=== PATIENT | male | born 1955 | race Hispanic/Latino ===

== ENCOUNTER 2022-12-12 10:06 | Emergency (ER) | payer OTHER, MEDICARE ==
[~2022-12-12] VITALS: Ht 165.1 cm; Wt 68.0 kg
[~2022-12-12 10:06] MED LIST: AMLO5TAB4 PO
[2022-12-12] MEDS ORDERED: SOLU-MEDROL 125MG VIAL IVP ONE (11:30)
[2022-12-12] MEDS ORDERED: IPRATROPIUM/ALBUTEROL SULFATE 3 ML SOLUTION IH ONE (11:30)
[2022-12-12 11:46] LABS: MEAN CORPUSCULAR HEMOGLOBIN 28.3 pg (27.0-33.0); MEAN CORPUSCULAR VOLUME 88.4 fL (79-99); PLATELET COUNT (AUTO) 223 K/uL (130-400); RED BLOOD CELL COUNT(AUTO) 5.09 MIL/uL (4.50-6.20); RED CELL DISTRIBUTION WIDTH 13.6 % (11.0-15.5); WHITE BLOOD COUNT (AUTO) 8.3 K/uL (4.8-10.8)
[2022-12-12 11:47] LABS: BASOPHILS # (AUTO) 0.06 K/uL (0.00-0.20); BASOPHILS % (AUTO) 0.7 % (0.0-5.0); EOSINOPHILS # (AUTO) 0.19 K/uL (0.00-0.70); EOSINOPHILS % (AUTO) 2.3 % (0.0-8.0); IMMATURE GRANULOCYTE ABSOLUTE 0.02 K/uL (0-1); LYMPHOCYTES # (AUTO) 1.6 K/uL (1.0-4.8); LYMPHOCYTES % (AUTO) 19.7 % (21.0-51.0); MONOCYTES # (AUTO) 0.5 K/uL (0.1-1.0); MONOCYTES % (AUTO) 6.5 % (3.0-13.0); NEUTROPHILS # (AUTO) 5.9 K/uL (1.8-7.7); NEUTROPHILS % (AUTO) 70.6 % (40.0-77.0)
[2022-12-12 11:57] VITALS: PULSE 72; RESP 18
[2022-12-12 11:57] LABS: CREATININE 1.4 mg/dL (0.5-1.5); POTASSIUM 4.1 mmol/L (3.5-5.1)
[2022-12-12 12:02] LABS: ALBUMIN 3.8 g/dL (3.5-5.0); BILIRUBIN,TOTAL 0.5 mg/dL (0.2-1.0); TOTAL PROTEIN, SERUM 7.6 g/dL (6.0-8.3)
[2022-12-12 12:24] LABS: B-TYPE NATRIURETIC PEPTIDE 11 pg/mL (0-100)
[2022-12-12] MEDS ORDERED: ALBUTEROL 0.083% 2.5 MG/3 ML INH IH ONE (13:30)
[2022-12-12 13:33] VITALS: PULSE 68; RESP 18
[2022-12-12] MEDS ORDERED: AZIT250T9 PO (13:40)
[2022-12-12] MEDS ORDERED: ALBU18HF7 IH (13:40)
[2022-12-12] MEDS ORDERED: PRED20TA3 PO (13:40)
[2022-12-12 13:45] VITALS: BP 144/77; PULSE 66; RESP 14; O2SAT 99
== END 2022-12-12 13:46 | disposition home or self-care (01) ==
LOC: EDH 10:06
DX: J20.9 Acute bronchitis, unspecified (principal); I10 Essential (primary) hypertension; F32.A Depression, unspecified; Z79.899 Other long term (current) drug therapy; Z98.890 Other specified postprocedural states
CPT/HCPCS: 99285; 96374; 71045; 84484; 80053; 83880; 85025; 87040 ×2; 83605; 36415; 93005; 94640 ×2; J2930

== ENCOUNTER → 2022-12-30 | Outpatient (CLI) | payer OTHER, MEDICARE ==
[~2022-12-30] MED LIST changes: +ALBU18HF7 IH; +AZIT250T9 PO; +IOHEXOL-350 50ML VIAL IV ONE; +PRED20TA3 PO
== END | disposition home or self-care (01) ==
LOC: RAH 13:34
PROVIDERS: ATTEND Family Medicine
DX: S09.90XA Unspecified injury of head, initial encounter (principal); R44.3 Hallucinations, unspecified; G31.9 Degenerative disease of nervous system, unspecified; R90.82 White matter disease, unspecified; X58.XXXA Exposure to other specified factors, initial encounter; Y93.89 Activity, other specified; Y92.89 Other specified places as the place of occurrence of the external cause; Y99.8 Other external cause status
CPT/HCPCS: 70470; Q9967

== ENCOUNTER 2023-08-31 15:38 | Emergency (ER) | payer OTHER ==
[~2023-08-31] VITALS: Ht 154.9 cm; Wt 68.0 kg
[~2023-08-31 15:38] MED LIST changes: +ICOS1CAP2 PO; -IOHEXOL-350 50ML VIAL IV ONE; +IRBE75TA16 PO; +MEMA5TAB16 PO; +OMEP20CA12 PO; -PRED20TA3 PO; +TRAZ-253 PO
[2023-08-31 16:16] LABS: BASOPHILS # (AUTO) 0.07 K/uL (0.00-0.20); BASOPHILS % (AUTO) 0.9 % (0.0-5.0); EOSINOPHILS # (AUTO) 0.55 K/uL (0.00-0.70); EOSINOPHILS % (AUTO) 6.8 % (0.0-8.0); HEMATOCRIT 41.1 % (42-54); IMMATURE GRANULOCYTE ABSOLUTE 0.02 K/uL (0-1); LYMPHOCYTES # (AUTO) 1.5 K/uL (1.0-4.8); MEAN CORPUSCULAR HEMOGLOBIN 28.1 pg (27.0-33.0); MEAN CORPUSCULAR HGB CONC 31.9 g/dL (32.0-36.0); MONOCYTES # (AUTO) 0.6 K/uL (0.1-1.0); MONOCYTES % (AUTO) 7.4 % (3.0-13.0); NEUTROPHILS # (AUTO) 5.3 K/uL (1.8-7.7); NEUTROPHILS % (AUTO) 65.7 % (40.0-77.0); PLATELET COUNT (AUTO) 208 K/uL (130-400); RED BLOOD CELL COUNT(AUTO) 4.67 MIL/uL (4.50-6.20); RED CELL DISTRIBUTION WIDTH 14.1 % (11.0-15.5); WHITE BLOOD COUNT (AUTO) 8.1 K/uL (4.8-10.8)
[2023-08-31 16:26] LABS: CREATININE 1.6 mg/dL (0.5-1.3); POTASSIUM 4.8 mmol/L (3.5-5.1)
[2023-08-31 16:30] LABS: ALBUMIN 3.7 g/dL (3.5-5.0); BILIRUBIN,TOTAL 0.5 mg/dL (0.2-1.0); TOTAL PROTEIN, SERUM 7.1 g/dL (6.0-8.3)
[2023-08-31 16:35] LABS: B-TYPE NATRIURETIC PEPTIDE 37 pg/mL (0-100)
[2023-08-31 16:48] VITALS: PULSE 64; RESP 18
[2023-08-31] MEDS: IPRATROPIUM/ALBUTEROL SULFATE 3 ML SOLUTION IH ONE ×2 (16:48→19:13)
[2023-08-31] MEDS: SOLU-MEDROL 125MG VIAL IVP ONE (16:52)
[2023-08-31] MEDS: MAGNESIUM 2GM PREMIX 50ML 50 ML IV SCH (16:53)
[2023-08-31 17:28] LABS: ABG BASE EXCESS -2.8 mmol/L (-2.0-3.0); ABG HCO3 21.8 mmol/L (21.0-28.0); ABG OXYGEN SATURATION 94.5 % (95.0-99.0); ABG PCO2 37 mmHg (35-48); ABG PH 7.384 (7.35-7.450); PO2, ARTERIAL BG 72.4 mmHg (83.0-108.0); VENT MODE, BG RA (ROOM AIR)
[2023-08-31 19:13] VITALS: PULSE 61; RESP 16
[2023-08-31] MEDS ORDERED: HYDR-4060 PO (19:37)
[2023-08-31] MEDS ORDERED: PRED50TA2 PO (19:37)
[2023-08-31] MEDS ORDERED: LEVO750T68 PO (19:37)
[2023-08-31] MEDS ORDERED: ONDA-243 PO (19:37)
[2023-08-31] MEDS: CEFTRIAXONE 1G VIAL IVPB ONE (19:44)
[2023-08-31 19:58] VITALS: BP 140/62; PULSE 70; RESP 20; O2SAT 99
== END 2023-08-31 19:57 | disposition home or self-care (01) ==
LOC: EDH 15:38
DX: J42 Unspecified chronic bronchitis (principal); R07.89 Other chest pain; I10 Essential (primary) hypertension; E11.9 Type 2 diabetes mellitus without complications; F03.90 Unspecified dementia, unspecified severity, without behavioral disturbance, psychotic disturbance, mood disturbance, and anxiety; Z79.899 Other long term (current) drug therapy; Z98.890 Other specified postprocedural states
CPT/HCPCS: 94640 ×2; 99285; 83735; 84484 ×2; 80053; 82803; 83880; 85025; 36415; 71045; 96374; 96375; 93005; 36600; J3475; J2919; J0696

== ENCOUNTER 2023-12-21 16:43 | Emergency (ER) | payer OTHER, MEDICARE ==
[~2023-12-21] VITALS: Ht 160 cm; Wt 70.3 kg
[~2023-12-21 16:43] MED LIST changes: +ADV250 IH; -AZIT250T9 PO; +DIVA125T32 PO; +FOLI1 PO; -ICOS1CAP2 PO; -IRBE75TA16 PO; +LORA10TA7 PO; +MEMA10TA21 PO; +QUET25TA36 PO; +XALA2.5OS OU
[2023-12-21 17:08] LABS: BASOPHILS # (AUTO) 0.02 K/uL (0.00-0.20); BASOPHILS % (AUTO) 0.2 % (0.0-5.0); EOSINOPHILS # (AUTO) 0.57 K/uL (0.00-0.70); EOSINOPHILS % (AUTO) 6.5 % (0.0-8.0); HEMATOCRIT 40.3 % (42-54); IMMATURE GRANULOCYTE ABSOLUTE 0.04 K/uL (0-1); LYMPHOCYTES # (AUTO) 1.8 K/uL (1.0-4.8); LYMPHOCYTES % (AUTO) 21.1 % (21.0-51.0); MEAN CORPUSCULAR HEMOGLOBIN 28.8 pg (27.0-33.0); MEAN CORPUSCULAR VOLUME 87.2 fL (79-99); MONOCYTES # (AUTO) 0.7 K/uL (0.1-1.0); MONOCYTES % (AUTO) 7.9 % (3.0-13.0); NEUTROPHILS # (AUTO) 5.6 K/uL (1.8-7.7); NEUTROPHILS % (AUTO) 63.8 % (40.0-77.0); PLATELET COUNT (AUTO) 212 K/uL (130-400); RED BLOOD CELL COUNT(AUTO) 4.62 MIL/uL (4.50-6.20); RED CELL DISTRIBUTION WIDTH 13.3 % (11.0-15.5); WHITE BLOOD COUNT (AUTO) 8.7 K/uL (4.8-10.8)
[2023-12-21 17:21] LABS: CREATININE 1.3 mg/dL (0.5-1.3)
[2023-12-21 17:26] LABS: SARS-CoV-2, RNA, NAAT NEGATIVE SARS CoV-2 (NEGATIVE)
[2023-12-21 17:31] LABS: INFLUENZA TYPE A Negative For Type A (NEGATIVE); INFLUENZA TYPE B Negative For Type B (NEGATIVE)
[2023-12-21 17:49] LABS: B-TYPE NATRIURETIC PEPTIDE 17 pg/mL (0-100)
[2023-12-21 18:29] LABS: APPEARANCE,URINE CLEAR (CLEAR); BILIRUBIN,URINE NEGATIVE (NEGATIVE); COLOR,URINE LIGHT-YELLOW (YELLOW); GLUCOSE, URINE (UA) NEGATIVE (NEGATIVE); KETONES,URINE NEGATIVE (NEGATIVE); LEUKOCYTE ESTERASE ,URINE NEGATIVE Leu/uL (NEGATIVE); NITRATE,URINE NEGATIVE (NEGATIVE); OCCULT BLOOD,URINE NEGATIVE (NEGATIVE); PROTEIN,URINE 20 mg/dL (NEGATIVE); UROBILINOGEN,URINE 0.2 mg/dL (0.2-1.0)
[2023-12-21 18:30] LABS: ADD UA MICROSCOPIC YES
[2023-12-21 18:32] LABS: MUCUS,URINE RARE LPF (None Seen); RBC,URINE 0-1 /HPF (0-1); SQUAMOUS EPITHELIAL CELL,UR RARE /HPF (0-2); WBC,URINE 0-1 /HPF (0-1)
[2023-12-21 19:45] VITALS: BP 148/65; PULSE 76; RESP 17; TEMP 98.3; O2SAT 99
== END 2023-12-21 19:52 | disposition home or self-care (01) ==
LOC: EDH 16:43
DX: S50.01XA Contusion of right elbow, initial encounter (principal); J40 Bronchitis, not specified as acute or chronic; F03.90 Unspecified dementia, unspecified severity, without behavioral disturbance, psychotic disturbance, mood disturbance, and anxiety; E11.9 Type 2 diabetes mellitus without complications; I10 Essential (primary) hypertension; Z79.51 Long term (current) use of inhaled steroids; Z79.899 Other long term (current) drug therapy; Z20.822 Contact with and (suspected) exposure to COVID-19; W18.39XA Other fall on same level, initial encounter; Y93.89 Activity, other specified; Y92.89 Other specified places as the place of occurrence of the external cause; Y99.8 Other external cause status
CPT/HCPCS: 36415; 71045; 73060; 73070; 80048; 81001; 82550; 83880; 84484; 85025; 87635; 87804; 93005

== ENCOUNTER 2024-05-17 17:20 | Emergency (ER) | payer OTHER, MEDICARE ==
[~2024-05-17] VITALS: Ht 160 cm; Wt 70.3 kg
[~2024-05-17 17:20] MED LIST changes: -ADV250 IH; +ATOR40TA71 PO; +ICOS1CAP2 PO; -LORA10TA7 PO; -MEMA5TAB16 PO; +MONT-39 PO; -OMEP20CA12 PO; +PRED20TA3 PO; +TAMS-1 PO
--- NOTE | 2024-05-17 17:34 | ERN ---
General Chief Complaint: Shoulder Injury/Pain Stated Complaint: SHOULDER Time Seen by MD: 17:22 History of Present Illness Initial Comments 68-year-old male brought in by EMS from home for a fall. Patient had a mechanical fall, onto the right side. He was right shoulder injury. No head injury. He was pleasantly demented, it was baseline mentation. There is no obvious other trauma. 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 12/12/22 Amlodipine Besylate (Norvasc 5Mg Tab) 5 Mg Tablet, 5 MG PO DAILY, #30 TAB 0 Refills Prov:JOLIE MAGUIRE MANAGER PRODUCT SUPPORT 10/30/21 Reported Medications Icosapent Ethyl (Icosapent Ethyl) 1 Gram Capsule, 2 CAP PO BID for 30 Days, #120 CAP 0 Refills 03/03/24 Montelukast Sodium (Montelukast Sodium) 10 Mg Tablet, 1 TAB PO DAILY for 30 Days, #30 TAB 0 Refills 03/03/24 Atorvastatin Calcium (Atorvastatin Calcium) 40 Mg Tablet, 1 TAB PO DAILY for 30 Days, #30 TAB 0 Refills 03/03/24 Quetiapine Fumarate (Quetiapine Fumarate) 25 Mg Tablet, 25 MG PO BID, TAB 03/03/24 Memantine HCl (Memantine HCl) 10 Mg Tablet, 1 TAB PO BID for 30 Days, #60 TAB 0 Refills 03/03/24 Latanoprost (Xalatan 0.005% Ophth Soln) 0.005 % Opsol, 1 DROP OU HS, DROP 10/03/23 Divalproex Sodium (Divalproex Sodium) 125 Mg Tablet.dr, 125 MG PO BID, TAB 10/03/23 Folic Acid (Folvite) 1 Mg Tab, 1 MG PO DAILY, TAB 10/03/23 Trazodone HCl (Desyrel) 50 Mg Tab, 0.5 TAB PO HS PRN for INSOMNIA 01/21/23 Past Medical History Past Medical History: Arthritis, Dementia, High Cholesterol, Hypertension Past Surgical History: Other Surgical History Other: RT SX Family History Family History: Negative Social History Social History: Negative, Lives with family, Other ROS Dictation Unreliable historian. He complains of right shoulder pain with palpation. He has been in his normal state of health according to the family. Physical Exam Physical Exam Dictation VITAL SIGNS: Reviewed. GENERAL APPEARANCE: Alert, baseline mentation, pleasantly demented HEAD AND FACE: Non-traumatic. EYES: PERRL, pink conjunctivas, eyelid no trauma, anterior chamber clear. EARS: Pinnas intact and no signs of trauma or erythema. Ear canals clear and no discharge. TMs no erythema. NOSE: No discharge, no bleeding. OROPHARYNX: Mouth normal, teeth no caries, tongue pink. Pharynx clear, no erythema. Tonsils no exudates, no abscesses noted. Mucous membrane moist. NECK: Supple, non-tender, no thyromegaly, no masses, no JVD, no bruits. BREAST: Deferred. CHEST: No tenderness, no crepitus, no paradoxical movement, no retractions. LUNGS: Clear, well-ventilated, symmetric, no rales, no wheezing, no rhonchi, no stridor, good breath sounds bilaterally. HEART: Regular rate, regular rhythm, no murmur, no gallops. VASCULAR: No peripheral edema. ABDOMEN: Soft, positive bowel sounds, nondistended, no guarding, nontender, no rebound, no masses no hepatomegaly, no splenomegaly, no Russo's sign, no hernias. RECTAL: Deferred. GENITAL: Deferred. NEUROLOGICAL: Normal speech, gross motor function intact, gross sensory function intact. MUSCULOSKELETAL: Neck nontender, full range of motion, back nontender, full range of motion. Right shoulder deformity/pain. Decreased range of motion due to pain. EXTREMITIES: Nontender, full range of motion. SKIN: Color pink, dry, no turgor, no rash, no lacerations, no abrasions, no c ontusions. LYMPHATICS: Deferred. Results Laboratory and Microbiology Lab and Micro Result REASON: fall ORDERING PHYSICIAN: LOUISE CARD DO PROCEDURE: C SPIN WO - CT CERVICAL SPINE W/O CONTRAST CT CERVICAL SPINE WITHOUT CONTRAST INDICATION: Neck pain after fall TECHNIQUE: Contiguous axial computed tomography imaging using 2 mm slice thickness through the cervical spine. Reconstructions in the sagittal and coronal planes. CT was performed with one or more of the following dose reduction techniques: Automated exposure control, adjustment of the mA and/or kV according to patient size, or use of iterative reconstruction technique. COMPARISON: 10/03/2023. FINDINGS: Straightening of the normal lordosis may be related to overlying muscle spasm, underlying degenerative joint disease and/or patient positioning.. Vertebral bodies are normal stature without evidence for compression deformity or fracture. No evidence for subluxation. Multilevel mild to moderate cervical spondylosis. The craniocervical junction appears normal. The atlantoaxial articulation is within normal limits. The dens is intact. The pre- and paravertebral soft tissues appear unremarkable. IMPRESSION: No evidence for fracture or subluxation. REASON: fall ORDERING PHYSICIAN: LOUISE CARD DO PROCEDURE: HEAD WO - CT HEAD/BRAIN W/O CONTRAST CT HEAD WITHOUT CONTRAST INDICATION: Fall TECHNIQUE: Noncontrast axial helical CT images from the vertex through the skull base using 5 mm slice thickness without contrast material. Coronal and sagittal reconstructions were also included. Dose reduction techniques was used using integrated, automated and adaptive dose reduction exposure control. CT was performed with one or more of the following dose reduction techniques: Automated exposure control, adjustment of the mA and/or kV according to patient size, or use of iterative reconstruction technique. COMPARISON: 11/20/2023 FINDINGS: Scattered and coalescent subcortical and periventricular white matter low attenuating areas likely represent residual of chronic small vessel arteriopathy and/or remote vascular insult. Generalized mild cerebral cortical atrophy is present.. No evidence for abnormal extra-axial fluid collections or masses. The ventricles and sulci are normal in size and configuration. No evidence for intracranial parenchymal, epidural, or subdural hemorrhage, mass effect or midline shift. The wolf-white matter differentiation is well preserved. No secondary evidence to suggest acute ischemia. Mild calcific plaque is present along the bonilla of the cavernous segments of both internal carotid arteries. The brainstem and cerebellum appear normal. The visualized orbits appear unremarkable. The visible paranasal sinuses and mastoid air cells are clear. The calvarium appears normal. IMPRESSION: Chronic white matter ischemic changes, mild brain atrophy, and arteriosclerotic disease as described, without acute component. CORDELIA: pain ORDERING PHYSICIAN: LOUISE CARD DO PROCEDURE: SHOL 2V RT - SHOULDER COMP 2+VWS RT RIGHT SHOULDER RADIOGRAPHS - 2-3 VIEWS INDICATION: Pain COMPARISON: None FINDINGS/IMPRESSION: Mild acromioclavicular joint osteoarthropathy. Anterior right shoulder dislocation without fracture. Labs Reviewed?: Yes MDM The patient is a 68-year-old male with a history of dementia who presents to the emergency after a fall while trying to get into his truck. Patient complaints of right shoulder pain. Denies any head trauma, LOC, nausea or vomiting. No other complaints reported. Reduction of right shoulder successfully performed by Dr. Card. Patient tolerated procedure well. Patient now back at baseline. Neurovascularly intact. Ambulatory with the assistance. Patient in no acute distress will be discharged to follow up with ortho. Discharge instructions given to patient is family member. Differential diagnosis: Shoulder dislocation, shoulder contusion, clavicle fracture Need for hospitalization: Patient does not meet criteria for hospitalization. There are no social concerns with this patient. ED Course Orders Procedure Category Date Status Time Shoulder Comp 2+Vws Rt RAD 05/17/24 Resulted 17:30 Ct Head/Brain W/O CT 05/17/24 Resulted Contrast 17:30 Ct Cervical Spine W/O CT 05/17/24 Resulted Contrast 17:30 Midazolam Hcl (Versed) PHA 05/17/24 Complete 18:30 Fentanyl Citrate Pf PHA 05/17/24 Complete 0.05 Mg/Ml (Fentanyl 18:30 Fentanyl Citrate Pf PHA 05/17/24 Complete 0.05 Mg/Ml (Fentanyl 18:11 Midazolam Hcl (Versed) PHA 05/17/24 Complete 18:11 Shoulder Ltd 1vw Rt RAD 05/17/24 Resulted 18:15 Current Medications Medications (Trade) Dose Ordered Sig/Amarilis Route PRN Reason Start Time Stop Time Status Last Admin Dose Admin Fentanyl Citrate (FENTanyl CITRate PF 50 MCG/ 1 ML 2ML VIAL) 50 mcg ONCE ONCE IVP 05/17/24 18:30 05/17/24 18:32 DC 05/17/24 18:15 Fentanyl Citrate (FENTanyl CITRate PF 50 MCG/ 1 ML 2ML VIAL) 100 mcg STK-MED ONCE .ROUTE 05/17/24 18:11 05/17/24 18:12 DC Midazolam HCl (Versed) 2 mg ONCE ONCE IVP 05/17/24 18:30 05/17/24 18:32 DC 05/17/24 18:15 Midazolam HCl (Versed) 2 mg STK-MED ONCE .ROUTE 05/17/24 18:11 05/17/24 18:12 DC Vital Signs Date Time Temp Pulse Resp B/P (MAP) Pulse Ox O2 Delivery O2 Flow Rate FiO2 05/17/24 20:06 98.1 80 16 148/74 97 Room Air* 0 21 05/17/24 18:27 82 14 156/70 95 Room Air* 0 21 05/17/24 18:15 75 14 179/64 95 Room Air* 0 21 05/17/24 17:24 81 16 149/71 96 Room Air 0 Joint Reduction Joint Reduction : Joint Reduction Site: shoulder (R) Conscious Sedation: Yes Reduction Attempts: 1 Pre-Procedure NV Exam: Yes Post-Procedure NV Exam: Yes post joint reduction film: joint reduced Progress Right shoulder anterior dislocation Closed reduction Performed by Dr. Card Consent: Verbal by patient Patient given fentanyl and Versed Shoulder reduced with traction counter traction, no complication Neurovascularly intact after I reviewed the repeat shoulder x-ray, good reduction Patient was full range of motion Patient monitored until back to baseline mentation. No complication. DX & DISP Disposition: Discharge Departure Impression: Primary Impression: Ground-level fall Additional Impression: Dislocation of right shoulder joint Condition: Stable Additional Instructions: Please continue to monitor at home. Do not allow patient to walk without assistance. Keep sling on. Follow up with pcp and ortho. If symptoms worsen please return to ER FOLLOW-UP WITH PRIMARY CARE PROVIDER IN 1 TO 2 DAYS. TAKE MEDICATIONS DIRECTED HERE IN THE EMERGENCY ROOM. OKAY TO CONTINUE HOME MEDICATIONS UNLESS OTHERWISE DISCUSSED DURING YOUR VISIT IN THE EMERGENCY ROOM TODAY. RETURN TO YOUR NEAREST EMERGENCY ROOM IF SYMPTOMS WORSEN OR IF THERE IS NO IMPROVEMENT. CALL 911 IF YOU NEED IMMEDIATE ASSISTANCE. TAKE TYLENOL [id number] NEEDED AND IF NO CONTRAINDICATIONS ARE PRESENT. INCREASE ORAL HYDRATION. A WOUND CULTURE OR URINE CULTURE WAS ORDERED HERE IN THE EMERGENCY ROOM DEPARTMENT PLEASE FOLLOW-UP WITH PRIMARY CARE PROVIDER AND ADVISE THEM TO GET REPEAT PORTS FROM OUR FACILITY. IF YOU HAD ANY MERYL WRAP/SPLINTS THAT WERE APPLIED HERE, PLEASE DO NOT REMOVE THEM UNTIL YOU SEE YOUR PRIMARY CARE OR SPECIALTY. Referrals: MARGO FRIEDMAN M.D. (PCP) KRISTEN HUSAIN MD Time of Disposition: 20:07 I have examined patient, & reviewed all documents, & agreed W/ the Diagnosis, and Plan I performed a substantive portion of the visit. I have reviewed and personally made and approve the management plan that is documented in the notes by myself with FRANCISCO/resident. I acknowledged full responsibility for the patient's management plan. 5-year-old male with a mechanical fall. Right shoulder dislocation. CT scans are unremarkable. Shoulder reduced without complication. DC'd in a sling to orthopedic follow up LOUISE CARD DO May 17, 2024 17:34 DANIS FERRARI May 17, 2024 19:21
[2024-05-17] MEDS: FENTanyl CITRate PF 50 MCG/1 ML 2ML VIAL IVP ONE (18:15)
[2024-05-17] MEDS: MIDAZOLAM HCL 1 MG/ML 2ML VIAL IVP ONE (18:15)
[2024-05-17] MEDS: FENTanyl CITRate PF 50 MCG/1 ML 2ML VIAL ONE (18:37)
[2024-05-17] MEDS: MIDAZOLAM HCL 1 MG/ML 2ML VIAL ONE (18:37)
--- NOTE | 2024-05-17 19:02 | HMCIMG ---
CT HEAD WITHOUT CONTRAST INDICATION: Fall TECHNIQUE: Noncontrast axial helical CT images from the vertex through the skull base using 5 mm slice thickness without contrast material. Coronal and sagittal reconstructions were also included. Dose reduction techniques was used using integrated, automated and adaptive dose reduction exposure control. CT was performed with one or more of the following dose reduction techniques: Automated exposure control, adjustment of the mA and/or kV according to patient size, or use of iterative reconstruction technique. COMPARISON: 11/20/2023 FINDINGS: Scattered and coalescent subcortical and periventricular white matter low attenuating areas likely represent residual of chronic small vessel arteriopathy and/or remote vascular insult. Generalized mild cerebral cortical atrophy is present.. No evidence for abnormal extra-axial fluid collections or masses. The ventricles and sulci are normal in size and configuration. No evidence for intracranial parenchymal, epidural, or subdural hemorrhage, mass effect or midline shift. The wolf-white matter differentiation is well preserved. No secondary evidence to suggest acute ischemia. Mild calcific plaque is present along the bonilla of the cavernous segments of both internal carotid arteries. The brainstem and cerebellum appear normal. The visualized orbits appear unremarkable. The visible paranasal sinuses and mastoid air cells are clear. The calvarium appears normal. IMPRESSION: Chronic white matter ischemic changes, mild brain atrophy, and arteriosclerotic disease as described, without acute component.
--- NOTE | 2024-05-17 19:02 | HMCIMG ---
CT CERVICAL SPINE WITHOUT CONTRAST INDICATION: Neck pain after fall TECHNIQUE: Contiguous axial computed tomography imaging using 2 mm slice thickness through the cervical spine. Reconstructions in the sagittal and coronal planes. CT was performed with one or more of the following dose reduction techniques: Automated exposure control, adjustment of the mA and/or kV according to patient size, or use of iterative reconstruction technique. COMPARISON: 10/03/2023. FINDINGS: Straightening of the normal lordosis may be related to overlying muscle spasm, underlying degenerative joint disease and/or patient positioning.. Vertebral bodies are normal stature without evidence for compression deformity or fracture. No evidence for subluxation. Multilevel mild to moderate cervical spondylosis. The craniocervical junction appears normal. The atlantoaxial articulation is within normal limits. The dens is intact. The pre- and paravertebral soft tissues appear unremarkable. IMPRESSION: No evidence for fracture or subluxation.
--- NOTE | 2024-05-17 19:06 | HMCIMG ---
RIGHT SHOULDER RADIOGRAPHS - 2-3 VIEWS INDICATION: Pain COMPARISON: None FINDINGS/IMPRESSION: Mild acromioclavicular joint osteoarthropathy. Anterior right shoulder dislocation without fracture.
--- NOTE | 2024-05-17 19:48 | HMCIMG ---
Exam Type: SHOULDER LTD 1VW RT Clinical Information: POST REDUCTION Comparison: None FINDINGS: There is adequate alignment of the glenohumeral joint after successful dislocation reduction. No other interval changes are seen. IMPRESSION: Adequate post reduction alignment.
[2024-05-17 20:06] VITALS: BP 148/74; PULSE 80; RESP 16; TEMP 98.1; O2SAT 97
== END 2024-05-17 20:20 | disposition home or self-care (01) ==
LOC: EDH 17:20
DX: S43.014A Anterior dislocation of right humerus, initial encounter (principal); W18.39XA Other fall on same level, initial encounter; Y93.89 Activity, other specified; Y92.89 Other specified places as the place of occurrence of the external cause; Y99.8 Other external cause status; E78.00 Pure hypercholesterolemia, unspecified; F03.90 Unspecified dementia, unspecified severity, without behavioral disturbance, psychotic disturbance, mood disturbance, and anxiety; I10 Essential (primary) hypertension; Z79.52 Long term (current) use of systemic steroids; Z79.899 Other long term (current) drug therapy
CPT/HCPCS: 99284; 23650; 70450; 73030; 72125; 73020; J3010; J2250

== ENCOUNTER 2024-06-07 13:19 | Observation (INO) | payer OTHER, MEDICARE ==
[~2024-06-07] VITALS: Ht 167.6 cm; Wt 68.5 kg
[~2024-06-07 13:19] MED LIST changes: -TAMS-1 PO; +TAMS-55 PO
[2024-06-07] MEDS: DIPH,PERTUSS(ACELL),TET VAC/PF 0.5 ML VIAL IM ONE (14:42)
--- NOTE | 2024-06-07 14:55 | HMCIMG ---
CT HEAD/BRAIN W/O CONTRAST HISTORY: Status post fall COMPARISON: None TECHNIQUE: Multiple sequential axial images of the head were obtained from the base of the skull through vertex. Patient was not given contrast through intravenous route. FINDINGS: The ventricles and extraventricular CSF spaces are dilated consistent with cerebral atrophy. Nonspecific white matter changes seen. There is no midline shift, mass effect or herniation. No acute intracranial bleed is seen. Visualized portion of the paranasal sinuses are grossly within normal limits. IMPRESSION: 1. No acute intracranial bleed is seen. 2. Atrophy with white matter changes. CT was performed with one or more following dose reduction techniques: automated exposure control, adjustment of the mA and kv according to patient's size, or use of a iterative reconstruction technique.
--- NOTE | 2024-06-07 15:00 | HMCIMG ---
CT CERVICAL SPINE W/O CONTRAST HISTORY: Status post fall COMPARISON: None TECHNIQUE: Multiple sequential axial images of the cervical spine were obtained including post processing sagittal and coronal reconstruction images. Patient was not given contrast through intravenous route. FINDINGS: There are degenerative changes with cervical spine spondylosis. Disc space narrowings are seen at C5-6 and C6-7 levels. There appears be punched-out lesions noted within the cervical spine. Possibility of multiple myeloma cannot be completely excluded. There is straightening of normal lordotic cervical curvature which may be related to muscle spasm or positioning. There is no loss of vertebral height. Evaluation for disc and cord pathology is limited with CT study. No evidence of fracture or dislocation is seen. IMPRESSION: 1. No fracture is seen. DJD with cervical spine spondylosis. Heterogeneous attenuation with possible punched-out lesions within the cervical spine with possibility of multiple myeloma not excluded. CT was performed with one or more following dose reduction techniques: automated exposure control, adjustment of the mA and kv according to patient's size, or use of a iterative reconstruction technique.
[2024-06-07 15:21] LABS: BASOPHILS # (AUTO) 0.05 K/uL (0.00-0.20); BASOPHILS % (AUTO) 0.5 % (0.0-5.0); EOSINOPHILS # (AUTO) 0.06 K/uL (0.00-0.70); EOSINOPHILS % (AUTO) 0.6 % (0.0-8.0); HEMATOCRIT 42.6 % (42-54); IMMATURE GRANULOCYTE ABSOLUTE 0.03 K/uL (0-1); LYMPHOCYTES # (AUTO) 1.4 K/uL (1.0-4.8); LYMPHOCYTES % (AUTO) 14.3 % (21.0-51.0); MEAN CORPUSCULAR HEMOGLOBIN 28.6 pg (27.0-33.0); MEAN CORPUSCULAR HGB CONC 32.4 g/dL (32.0-36.0); MEAN CORPUSCULAR VOLUME 88.4 fL (79-99); MONOCYTES # (AUTO) 0.7 K/uL (0.1-1.0); MONOCYTES % (AUTO) 6.9 % (3.0-13.0); NEUTROPHILS # (AUTO) 7.3 K/uL (1.8-7.7); NEUTROPHILS % (AUTO) 77.4 % (40.0-77.0); PLATELET COUNT (AUTO) 235 K/uL (130-400); RED BLOOD CELL COUNT(AUTO) 4.82 MIL/uL (4.50-6.20); RED CELL DISTRIBUTION WIDTH 13.4 % (11.0-15.5); WHITE BLOOD COUNT (AUTO) 9.4 K/uL (4.8-10.8)
--- NOTE | 2024-06-07 15:24 | HMCIMG ---
CT CHEST/ABD/PELV W/O CONTRAST HISTORY: Status post fall COMPARISON: None TECHNIQUE: Multiple sequential axial images of the chest were obtained from the thoracic inlet through upper abdomen. Patient was not given contrast through intravenous route. FINDINGS: Prominent interstitial markings are seen. There is no evidence of pulmonary nodule or parenchymal disease. No pleural effusion or pericardial effusion is seen. There is no evidence of pneumothorax. There are normal size mediastinal and hilar lymph nodes. The heart is borderline enlarged. Coronary arterial calcifications are seen. Degenerative changes of the thoracolumbar spine are present. There is no evidence of adrenal nodule. IMPRESSION: 1. No evidence of pulmonary nodule or effusion is seen. CT CHEST/ABD/PELV W/O CONTRAST HISTORY: Status post fall COMPARISON: None TECHNIQUE: Multiple sequential axial images of the abdomen and pelvis were obtained from the dome of the diaphragm through symphysis pubis. Patient was not given contrast through intravenous route. Oral contrast was not given. FINDINGS: The liver, spleen, adrenal glands and pancreas are unremarkable. There is no evidence of hydronephrosis bilaterally. No evidence of renal stone is seen. Fecal material is seen in the colon. There are normal size retroperitoneal and mesenteric lymph nodes. No ascites is seen. Atherosclerotic changes are present. There is infrarenal abdominal aortic aneurysm measuring 2.6 x 2.4 cm. There is diverticulosis. Pelvic sidewalls are symmetric bilaterally. Bladder is well distended without wall thickening. IMPRESSION: 1. No acute findings. CT was performed with one or more following dose reduction techniques: automated exposure control, adjustment of the mA and kv according to patient's size, or use of a iterative reconstruction technique.
[2024-06-07 15:27] LABS: CREATININE 1.4 mg/dL (0.5-1.3)
--- NOTE | 2024-06-07 15:28 | HMCIMG ---
CT MAXILLOFACIAL W/O CONTRAST HISTORY: Status post fall COMPARISON: None TECHNIQUE: Multiple sequential high-resolution axial images of the paranasal sinuses were obtained. Postprocessing sagittal and coronal reconstruction images were also obtained. Patient was not given contrast through intravenous route. FINDINGS: Nasal septum is deviated towards right. Patient is almost edentulous. There is nasal polyposis. There is no evidence of mucoperiosteal thickening involving the paranasal sinuses. The infundibula are patent bilaterally. There is deformity of the nasal bones and nasal spine may be related to fracture of indeterminate age. Soft tissue swelling is seen. Deformity is seen of the right orbit may be related to blindness and ophthalmologic correlation is recommended. There is no evidence of air-fluid level in the paranasal sinuses. Parapharyngeal fat planes are preserved bilaterally. IMPRESSION: 1. There is deformity of the nasal bones and nasal spine may be related to fracture of indeterminate age. Soft tissue swelling is seen. Deformity is seen of the right orbit may be related to blindness and ophthalmologic correlation is recommended. CT was performed with one or more following dose reduction techniques: automated exposure control, adjustment of the mA and kv according to patient's size, or use of a iterative reconstruction technique.
[2024-06-07 15:30] LABS: INR 0.99 (0.85-1.15); PROTHROMBIN TIME 10.5 SEC (9.6-11.6)
[2024-06-07 15:32] LABS: PARTIAL THROMBOPLASTIN TIME 24.5 SEC (26.3-35.5)
--- NOTE | 2024-06-07 15:53 | HMCIMG ---
HAND 3+VWS RT HISTORY: Pain COMPARISON: None TECHNIQUE: 3 images of right hand were obtained. FINDINGS: Interphalangeal joint space narrowing is seen. Radiocarpal joint space narrowing is seen. There is no acute displaced fracture or dislocation. Degenerative changes are seen. IMPRESSION: 1. Findings as described above.
--- NOTE | 2024-06-07 15:55 | HMCIMG ---
SHOULDER COMP 2+VWS RT HISTORY: Pain COMPARISON: None TECHNIQUE: 3 images of right shoulder were obtained. FINDINGS: There is no acute displaced fracture or dislocation. Degenerative changes are seen. IMPRESSION: 1. Findings as described above.
--- NOTE | 2024-06-07 15:56 | HMCIMG ---
HAND 3+VWS LT HISTORY: Pain COMPARISON: None TECHNIQUE: 3 images of left hand were obtained. FINDINGS: Radiocarpal joint space narrowing and interphalangeal joint space narrowing are seen. There appears to be loose body near the third proximal interphalangeal joint. There is no acute displaced fracture or dislocation. Degenerative changes are seen. IMPRESSION: 1. Findings as described above.
[2024-06-07] MEDS: LIDOCAINE HCL 1% 20 ML VIAL INJ ONE (16:13)
[2024-06-07] MEDS: CLINDAMYCIN IVPB 300MG/50ML 50 ML IV STA (16:13)
--- NOTE | 2024-06-07 16:28 | EKG ---
[facility] Test Date: 2024-06-07 Test Time: 16:26:57 Pat Name: WALT VEGA Department: ED Room: 319 Gender: M Frankfurter Inspector: [id number] : 1955 Requested By: DANIS FERRARI Order Number: [id number] Reading MD: Stu Dover Measurements Intervals [place] Rate: 87 P: 23 CA: 181 QRS: -27 QRSD: 92 T: 52 QT: 370 QTc: 447 Interpretive Statements Sinus rhythm Compared to ECG 03/02/2024 17:48:48 Myocardial infarct finding no longer present Electronically Signed On 06-16-2024 13:54:04 CDT by Stu Dover Please click the below link to view image of tracing.
[2024-06-07] MEDS ORDERED: ondanSETRON 4MG INJ IVP PRN (17:30)
[2024-06-07] MEDS ORDERED: acetaMINOPHEN 325 MG TAB PO PRN (17:30)
[2024-06-07] MEDS ORDERED: LAbetaLOL 20MG SYG IV PRN (17:30)
[2024-06-07] MEDS ORDERED: LACTULOSE 20 GM/30 ML UDCUP PO PRN (17:30)
[2024-06-07] MEDS ORDERED: hydrALAZine 20MG/ML VIAL IV PRN (17:30)
[2024-06-07] MEDS: NEOMY SULF/BACITRA/POLYMYXIN B 1 EACH PACKET TP ONE (18:02)
--- NOTE | 2024-06-07 18:21 | HP ---
[facility] HISTORY & PHYSICAL Date Patient Seen: Jun 07, 2024 Time of Visit: 1999 Supervising Physician: [Dr. Miquel Doe ] Primary Care Physician: [Dr. Rufnia Hanna ] Outpatient Specialists: [ ] Inpatient Consults: [ ] PROBLEM LIST: Ground-level fall sustaining skin laceration on forehead, arms and nasal bridge-POA Recurrent falls-POA Acute encephalopathy, likely multifactorial from dementia vs. metabolic vs. rule-out infectious pending UA-POA Rule-out multiple myeloma-POA Infrarenal abdominal aortic aneurysm measuring 2.6 x 2.4 cm.-POA KRISTIE on CKD 4-POA Dehydration-POA Facial wound and laceration concern for development of non-purulent cellulitis s/p stitches-POA Behavioral agitation and sundowning-POA Primary HTN HLD Dementia Hallucination, visual and auditory HX of prior right-sided CVA Right eye blindness PLAN: -Admit to medsurg -IV fluid for hydration -Pending UA -Multiple myeloma blood work-up, if significant, consider consult with oncology -Obtain MRI of the spine in am -Manage electrolytes, replete PRN -Start on IV Ancef for prophylactic coverage of skin infection related to fall, also apply triple antibiotic ointment TID -Avoid mind-altering meds and sedatives -1:1 sitter for safety -PT/OT to eval and treat -Obtain B2M and CEA -Watchful surveillance on the incidental findings of infrarenal aortic aneurysm HPI: [Patient has dementia and unable to engage with a meaningful HPI. 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 Per ED HAND CULTIVATOR notes: "The patient is a 68-year-old male with a history of dementia, hypertension, arthritis, right eye blindness who presents to the emergency department with a ground level fall onset 12:30 p.m. after tripping while walking. Per patient's fall was witnessed by neighbors. Reports patient f ell and hit his face. Denies any LOC, nausea or vomiting. Denies any blood thinners. Patient complaints of right shoulder and bilateral hand pain, face pain. Unknown last Tdap" [place]. claims that the patient would have recurrent falls, he is blind on his right eye. CT imaging and xrays were negative for fractures and dislocations on maxillofacial, arms, hands, shoulder and spine. However, concerns for possible multiple myeloma was raised due to punched-out lesions found on the CT cervical spine. He was given prophylactic Clindamycin and TDAP injection in ED. Physical assessment reveals skin laceration on the nasal bridge which was sutured in ED and wounds on forehead and bilateral arms. Negative for swelling and tenderness on cervical, thoracic and lumbar area. ] PAST MEDICAL HX: see above PAST SURGICAL HX: noncontributory SOCIAL HISTORY: No tobacco, ETOH, or illicit drug use Coded Allergies: No Known Drug Allergies (Unverified Allergy, Unknown, 05/02/21) REVIEW OF SYSTEMS: Unable to perform 12 point ROS due to patient's dementia. PHYSICAL EXAM: GENERAL: alert, weak, awake oriented to self and HEENT: EOMI, Sclera non icteric, dry mucosa, right eye blind NECK: Supple, no JVD, trachea midline LUNGS: Clear breath sounds bilaterally. No wheezes HEART: Regular rate and rhythm. Normal S1 and S2, without murmurs ABD: Abdomen soft, nontender. Bowel sounds present EXT: No clubbing cyanosis or edema SKIN: forehead wound, nasal bridge laceration with stitches, BUE wounds sustained from mechanical fall NEURO: Alert and oriented to person, follows commands Vital Signs (last 8hr) Date Time Temp Pulse Resp B/P (MAP) Pulse Ox O2 Delivery O2 Flow Rate FiO2 06/07/24 18:12 98.4 92 24 155/62 100 Room Air* 0 21 06/07/24 14:05 98.8 107 18 138/67 99 Room Air* 0 21 06/07/24 13:40 98.2 107 16 138/62 94 Room Air 0 LABS: Hematology Labs: Test 06/07/24 15:13 Range/Units White Blood Count 9.4 4.8-10.8 K/uL Red Blood Count 4.82 4.50-6.20 MIL/uL Hemoglobin 13.8 L 14.0-18.0 g/dL Hematocrit 42.6 42-54 % Mean Corpuscular Volume 88.4 79-99 fL Mean Corpuscular Hemoglobin 28.6 27.0-33.0 pg Mean Corpuscular Hemoglobin Concent 32.4 32.0-36.0 g/dL Red Cell Distribution Width 13.4 11.0-15.5 % Platelet Count 235 130-400 K/uL Mean Platelet Volume 9.9 7.5-10.5 fL Immature Granulocyte % (Auto) 0.3 0-1 % Neutrophils (%) (Auto) 77.4 H 40.0-77.0 % Lymphocytes (%) (Auto) 14.3 L 21.0-51.0 % Monocytes (%) (Auto) 6.9 3.0-13.0 % Eosinophils (%) (Auto) 0.6 0.0-8.0 % Basophils (%) (Auto) 0.5 0.0-5.0 % Neutrophils # (Auto) 7.3 1.8-7.7 K/uL Lymphocytes # (Auto) 1.4 1.0-4.8 K/uL Monocytes # (Auto) 0.7 0.1-1.0 K/uL Eosinophils # (Auto) 0.06 0.00-0.70 K/uL Basophils # (Auto) 0.05 0.00-0.20 K/uL Absolute Immature Granulocyte (auto 0.03 0-1 K/uL Nucleated Red Blood Cells 0.0 0.0-0.19 % Chemistry Labs: Test 06/07/24 15:13 Range/Units Sodium Level 139 136-145 mmol/L Potassium Level 4.0 3.5-5.1 mmol/L Chloride Level 104 101-111 mmol/L Carbon Dioxide Level 26 21-32 mmol/L Blood Urea Nitrogen 24 H 7-18 mg/dL Creatinine 1.4 H 0.5-1.3 mg/dL Glomerular Filtration Rate Calc 54 >90 mL/min Random Glucose 188 H 70-105 mg/dL Total Calcium 9.2 8.5-10.1 mg/dL Coagulation Labs: Test 06/07/24 15:13 Range/Units Prothrombin Time 10.5 9.6-11.6 SEC Prothromb Time International Ratio 0.99 0.85-1.15 Activated Partial Thromboplast Time 24.5 L 26.3-35.5 SEC DIAGNOSTICS / RADIOLOGY RESULTS: [ ] PLAN NEURO: Minimize central acting medications as possible. Maintain fall precautions, adequate lighting during the day PULMONARY: Supplemental 02 as needed. Maintain aspiration precautions at all times CARDIOVASCULAR: Follow hemodynamics. Vital signs per facility protocol GI & NUTRITION: Continue with nutritional support. Continue stool softeners and laxatives as needed. KIDNEYS & ELECTROLYTES: Strict monitoring of intake, output and overall fluid balance. Avoid nephrotoxic medications to the extent possible. Medications to be dosed according to renal function. Monitor electrolytes and replace as needed ENDOCRINE: Maintain blood glucose between 100-180 at all times. Hypoglycemia protocol in place INFECTIOUS DISEASE: Trend temperature, WBC and procalcitonin level Follow cultures, deescalate antibiotics as soon as possible. Panculture if new onset fever ONCOLOGY/HEMATOLOGY/COAGULATION: Monitor for s/s of bleeding Monitor hemoglobin, coagulation studies as needed SKIN: Pressure ulcer prevention per facility protocol Specialty mattress ORTHO/REHAB: Continue PT/OT Prophylaxis: Continue GI and DVT prophylaxis Code Status: Full Resuscitation Disposition: TBD Other: Total patient care time: 35 minutes CARMEN ADRIAN Jun 07, 2024 18:21
--- NOTE | 2024-06-07 18:22 | NUR ---
PER NO PACER, NO METAL OR HARDWARE IN BODY.
--- NOTE | 2024-06-07 18:22 | NUR ---
NO HX OF CANCERS PER .
--- NOTE | 2024-06-07 18:35 | ERN ---
ED Note History of Present Illness Stated Complaint: GROUND-LEVEL FALL, RULE-OUT [place] MULTIPLE MYE Chief Complaint: Mechanical Fall Time Seen by MD: 13:21 Time Seen by Midlevel: 13:21 Dictation: The patient is a 68-year-old male with a history of dementia, hypertension, arthritis, right eye blindness who presents to the emergency department with a ground level fall onset 12:30 p.m. after tripping while walking. Per patient's fall was witnessed by neighbors. Reports patient fell and hit his face. Denies any LOC, nausea or vomiting. Denies any blood thinners. Patient complaints of right shoulder and bilateral hand pain, face pain. Unknown last Tdap Allergies: Coded Allergies: No Known Drug Allergies (Unverified Allergy, Unknown, 05/02/21) Home Meds Discontinued Reported Medications Icosapent Ethyl (Icosapent Ethyl) 1 Gram Capsule, 2 CAP PO BID for 30 Days, #120 CAP 0 Refills 03/03/24 Montelukast Sodium (Montelukast Sodium) 10 Mg Tablet, 1 TAB PO DAILY for 30 Days, #30 TAB 0 Refills 03/03/24 Atorvastatin Calcium (Atorvastatin Calcium) 40 Mg Tablet, 1 TAB PO DAILY for 30 Days, #30 TAB 0 Refills 03/03/24 Quetiapine Fumarate (Quetiapine Fumarate) 25 Mg Tablet, 25 MG PO BID, TAB 03/03/24 Memantine HCl (Memantine HCl) 10 Mg Tablet, 1 TAB PO BID for 30 Days, #60 TAB 0 Refills 03/03/24 Latanoprost (Xalatan 0.005% Ophth Soln) 0.005 % Opsol, 1 DROP OU HS, DROP 10/03/23 Divalproex Sodium (Divalproex Sodium) 125 Mg Tablet.dr, 125 MG PO BID, TAB 10/03/23 Folic Acid (Folvite) 1 Mg Tab, 1 MG PO DAILY, TAB 10/03/23 Trazodone HCl (Desyrel) 50 Mg Tab, 0.5 TAB PO HS PRN for INSOMNIA 01/21/23 Discontinued Scripts Tamsulosin HCl (Flomax) 0.4 Mg Cap.er.24h, 1 CAP PO DAILY for 30 Days, #30 CAP 0 Refills Prov:GISEL ELLIS 03/06/24 Prednisone (Prednisone) 20 Mg Tablet, 40 MG PO DAILY, #5 TAB Prov:GISEL ELLIS PA 03/06/24 Albuterol Sulfate (Ventolin Hfa) 90 Mcg Hfa.aer.ad, 2 PUFF IH Q4HPRN PRN for COUGH, #18 G Prov:JOCELINE ASHBY RN ENTEROSTOMAL 12/12/22 Amlodipine Besylate (Norvasc 5Mg Tab) 5 Mg Tablet, 5 MG PO DAILY, #30 TAB 0 Refills Prov:JOLIE MAGUIRE CASING TRIMMER 10/30/21 Past Medical History Past Medical History: Dementia, High Cholesterol, Hypertension Surgical History: None Surgical History Other: RT SX Family History: Negative Social History: Negative, Lives with family, Other RN Note Reviewed/Agreed w/PFSH: Yes Review of System Dictation Constitutional: Negative for fever,chills, and weight loss Eyes: Negative for injury, pain,redness, and discharge ENT: Negative for injury,pain or swelling Cardiovascular: Negative for chest pain, palpitations, and edema Respiratory: Negative for shortness of breath, cough, and wheezing, Abdomen/GI: Negative for abdominal pain, nausea, vomiting, diarrhea, and constipation Back: Negative for injury and pain : Negative for injury, bleeding and discharge MS/Extremity: Negative for injury and deformity positive for right shoulder pain Skin: Negative for rash, and discoloration positive for facial laceration Neuro: Negative for , weakness, numbness, tingling, and seizure positive for headache Psych: Negative for suicide ideation, homicidal ideation, and hallucinations Initial Vital Sign VS Vital Signs Date Time Temp Pulse Resp B/P (MAP) Pulse Ox O2 Delivery O2 Flow Rate FiO2 06/07/24 13:40 98.2 107 16 138/62 94 Room Air 0 06/07/24 14:05 21 Physical Exam Dictation Vital Signs reviewed General Appearance: Alert, oriented x 2, no acute distress, well developed, nourished. Head and Face: Laceration to bridge of nose, minimal bleeding, hematoma to right frontal area Eyes: Right eye shut, pink conjunctivas, eyelid no trauma, anterior chamber with arcus senilis. Ears: Pinnas intact and no signs of trauma or erythema ear canals clear and no discharge TM no erythema Nose: No discharge, no bleeding. Oropharynx: Mouth normal, tongue pink. pharynx clear,no erythema, tonsils no exudates, no abscesses noted, mucous membrane moist Neck: Supple, non-tender, no thyromegaly, no masses, no JVD, no bruits Breast:Deferred Chest:No tenderness, no crepitus, no paradoxical movement, no retractions Lungs:Clear, well-ventilated, symmetric, no rales, no wheezing, no rhonchi, no stridor, good breath sounds bilaterally Heart: Regular rate, regular rhythm, no murmur, no gallops Vascular: no peripheral edema, radial pulses 3+ bilaterally Abdomen: Soft, positive bowel sounds, nondistended, no guarding, nontender, no rebound, no masses no hepatomegaly, no splenomegaly, no Russo's sign, no hernias. Rectal: Deferred Genital: Deferred Neurological: Normal speech, motor function intact, sensory function intact Musculoskeletal: Neck nontender, full range of motion, back nontender, full range of motion, Extremities: nontender, full range of motion , right shoulder tenderness Skin: Color pink, dry, no turgor, no rash, no contusions. Minor skin tear to bilateral arms, 2 cm laceration to bridge of pills, active bleeding, hematoma to right frontal headache Lymphatic: Deferred Results (Laboratory/Radiology) Laboratory/Radiology Laboratory Tests Test 06/07/24 13:53 06/07/24 15:13 06/07/24 20:34 06/08/24 06:26 Lactate Dehydrogenase 206 U/L (81-234) Total Protein 6.9 g/dL (6.0-8.3) White Blood Count 9.4 K/uL (4.8-10.8) 10.2 K/uL (4.8-10.8) Red Blood Count 4.82 MIL/uL (4.50-6.20) 4.88 MIL/uL (4.50-6.20) Hemoglobin 13.8 g/dL (14.0-18.0) L 14.2 g/dL (14.0-18.0) Hematocrit 42.6 % (42-54) 42.8 % (42-54) Mean Corpuscular Volume 88.4 fL (79-99) 87.7 fL (79-99) Mean Corpuscular Hemoglobin 28.6 pg (27.0-33.0) 29.1 pg (27.0-33.0) Mean Corpuscular Hemoglobin Concent 32.4 g/dL (32.0-36.0) 33.2 g/dL (32.0-36.0) Red Cell Distribution Width 13.4 % (11.0-15.5) 13.4 % (11.0-15.5) Platelet Count 235 K/uL (130-400) 265 K/uL (130-400) Mean Platelet Volume 9.9 fL (7.5-10.5) 10.2 fL (7.5-10.5) Immature Granulocyte % (Auto) 0.3 % (0-1) 0.5 % (0-1) Neutrophils (%) (Auto) 77.4 % (40.0-77.0) H 72.2 % (40.0-77.0) Lymphocytes (%) (Auto) 14.3 % (21.0-51.0) L 19.2 % (21.0-51.0) L Monocytes (%) (Auto) 6.9 % (3.0-13.0) 6.6 % (3.0-13.0) Eosinophils (%) (Auto) 0.6 % (0.0-8.0) 1.0 % (0.0-8.0) Basophils (%) (Auto) 0.5 % (0.0-5.0) 0.5 % (0.0-5.0) Neutrophils # (Auto) 7.3 K/uL (1.8-7.7) 7.4 K/uL (1.8-7.7) Lymphocytes # (Auto) 1.4 K/uL (1.0-4.8) 2.0 K/uL (1.0-4.8) Monocytes # (Auto) 0.7 K/uL (0.1-1.0) 0.7 K/uL (0.1-1.0) Eosinophils # (Auto) 0.06 K/uL (0.00-0.70) 0.10 K/uL (0.00-0.70) Basophils # (Auto) 0.05 K/uL (0.00-0.20) 0.05 K/uL (0.00-0.20) Absolute Immature Granulocyte (auto 0.03 K/uL (0-1) 0.05 K/uL (0-1) Nucleated Red Blood Cells 0.0 % (0.0-0.19) 0.0 % (0.0-0.19) Prothrombin Time 10.5 SEC (9.6-11.6) Prothromb Time International Ratio 0.99 (0.85-1.15) Activated Partial Thromboplast Time 24.5 SEC (26.3-35.5) L Sodium Level 139 mmol/L (136-145) 141 mmol/L (136-145) Potassium Level 4.0 mmol/L (3.5-5.1) 3.9 mmol/L (3.5-5.1) Chloride Level 104 mmol/L (101-111) 107 mmol/L (101-111) Carbon Dioxide Level 26 mmol/L (21-32) 24 mmol/L (21-32) Blood Urea Nitrogen 24 mg/dL (7-18) H 18 mg/dL (7-18) Creatinine 1.4 mg/dL (0.5-1.3) H 1.2 mg/dL (0.5-1.3) Glomerular Filtration Rate Calc 54 mL/min (>90) 65 mL/min (>90) Random Glucose 188 mg/dL (70-105) H 170 mg/dL (70-105) H Hemoglobin A1c 8.8 % (4.0-6.0) H Estimated Average Glucose (eAG) 206 mg/dL (70-126) H Total Calcium 9.2 mg/dL (8.5-10.1) 9.1 mg/dL (8.5-10.1) Phosphorus Level 2.9 mg/dL (2.5-4.9) 3.2 mg/dL (2.5-4.9) Magnesium Level 2.00 mg/dL (1.80-2.40) 1.90 mg/dL (1.80-2.40) Vitamin B12 Level 538 pg/mL (193-986) Folic Acid (LAB) > 20.00 ng/mL (2-20) H Urine Color LIGHT-YELLOW (YELLOW) Urine Appearance CLEAR (CLEAR) Urine pH 7.0 (5.0-8.0) Urine Specific [place] 1.018 (1.001-1.031) Urine Protein 70 mg/dL (NEGATIVE) H Urine Glucose (UA) 30 mg/dL (NEGATIVE) H Urine Ketones NEGATIVE mg/dL (NEGATIVE) Urine Occult Blood NEGATIVE (NEGATIVE) Urine Nitrate NEGATIVE (NEGATIVE) Urine Bilirubin NEGATIVE mg/dL (NEGATIVE) Urine Urobilinogen 0.2 mg/dL (0.2-1.0) Urine Leukocyte Esterase NEGATIVE Rhea/uL Urine RBC 2-5 /HPF (0-1) H Urine WBC 0-1 /HPF (0-1) Urine Squamous Epithelial Cells RARE /HPF (0-2) Urine Bacteria None /HPF (None Seen) Thyroid Stimulating Hormone (TSH) 2.34 uIU/mL (0.36-3.74) REASON: pain ORDERING PHYSICIAN: DANIS FERRARI RN ENTEROSTOMAL PROCEDURE: SHOL 2V RT - SHOULDER COMP 2+VWS RT SHOULDER COMP 2+VWS RT HISTORY: Pain COMPARISON: None TECHNIQUE: 3 images of right shoulder were obtained. FINDINGS: There is no acute displaced fracture or dislocation. Degenerative changes are seen. IMPRESSION: 1. Findings as described above. REASON: fall, head trauma ORDERING PHYSICIAN: DANIS FERRARI RN ENTEROSTOMAL PROCEDURE: MAXFACI WO - CT MAXILLOFACIAL W/O CONTRAST CT MAXILLOFACIAL W/O CONTRAST HISTORY: Status post fall COMPARISON: None TECHNIQUE: Multiple sequential high-resolution axial images of the paranasal sinuses were obtained. Postprocessing sagittal and coronal reconstruction images were also obtained. Patient was not given contrast through intravenous route. FINDINGS: Nasal septum is deviated towards right. Patient is almost edentulous. There is nasal polyposis. There is no evidence of mucoperiosteal thickening involving the paranasal sinuses. The infundibula are patent bilaterally. There is deformity of the nasal bones and nasal spine may be related to fracture of indeterminate age. Soft tissue swelling is seen. Deformity is seen of the right orbit may be related to blindness and ophthalmologic correlation is recommended. There is no evidence of air-fluid level in the paranasal sinuses. Parapharyngeal fat planes are preserved bilaterally. IMPRESSION: 1. There is deformity of the nasal bones and nasal spine may be related to fracture of indeterminate age. Soft tissue swelling is seen. Deformity is seen of the right orbit may be related to blindness and ophthalmologic correlation is recommended. CT was performed with one or more following dose reduction techniques: automated exposure control, adjustment of the mA and kv according to patient's size, or use of a iterative reconstruction technique. REASON: fall, head trauma ORDERING PHYSICIAN: DANIS FERRARI [facility] PROCEDURE: HEAD WO - CT HEAD/BRAIN W/O CONTRAST CT HEAD/BRAIN W/O CONTRAST HISTORY: Status post fall COMPARISON: None TECHNIQUE: Multiple sequential axial images of the head were obtained from the base of the skull through vertex. Patient was not given contrast through intravenous route. FINDINGS: The ventricles and extraventricular CSF spaces are dilated consistent with cerebral atrophy. Nonspecific white matter changes seen. There is no midline shift, mass effect or herniation. No acute intracranial bleed is seen. Visualized portion of the paranasal sinuses are grossly within normal limits. IMPRESSION: 1. No acute intracranial bleed is seen. 2. Atrophy with white matter changes. CT was performed with one or more following dose reduction techniques: automated exposure control, adjustment of the mA and kv according to patient's size, or use of a iterative reconstruction technique. REASON: pain ORDERING PHYSICIAN: DANIS FERRARI RN ENTEROSTOMAL PROCEDURE: HAND 3V RT - HAND 3+VWS RT HAND 3+VWS RT HISTORY: Pain COMPARISON: None TECHNIQUE: 3 images of right hand were obtained. FINDINGS: Interphalangeal joint space narrowing is seen. Radiocarpal joint space narrowing is seen. There is no acute displaced fracture or dislocation. Degenerative changes are seen. IMPRESSION: 1. Findings as described above. REASON: pain ORDERING PHYSICIAN: DANIS FERRARI RN ENTEROSTOMAL PROCEDURE: HAND 3V LT - HAND 3+VWS LT HAND 3+VWS LT HISTORY: Pain COMPARISON: None TECHNIQUE: 3 images of left hand were obtained. FINDINGS: Radiocarpal joint space narrowing and interphalangeal joint space narrowing are seen. There appears to be loose body near the third proximal interphalangeal joint. There is no acute displaced fracture or dislocation. Degenerative changes are seen. IMPRESSION: 1. Findings as described above. REASON: fall, head trauma ORDERING PHYSICIAN: DANIS FERRARI RN ENTEROSTOMAL PROCEDURE: CAP WO - CT CHEST/ABD/PELV W/O CONTRAST CT CHEST/ABD/PELV W/O CONTRAST HISTORY: Status post fall COMPARISON: None TECHNIQUE: Multiple sequential axial images of the chest were obtained from the thoracic inlet through upper abdomen. Patient was not given contrast through intravenous route. FINDINGS: Prominent interstitial markings are seen. There is no evidence of pulmonary nodule or parenchymal disease. No pleural effusion or pericardial effusion is seen. There is no evidence of pneumothorax. There are normal size mediastinal and hilar lymph nodes. The heart is borderline enlarged. Coronary arterial calcifications are seen. Degenerative changes of the thoracolumbar spine are present. There is no evidence of adrenal nodule. IMPRESSION: 1. No evidence of pulmonary nodule or effusion is seen. CT CHEST/ABD/PELV W/O CONTRAST HISTORY: Status post fall COMPARISON: None TECHNIQUE: Multiple sequential axial images of the abdomen and pelvis were obtained from the dome of the diaphragm through symphysis pubis. Patient was not given contrast through intravenous route. Oral contrast was not given. FINDINGS: The liver, spleen, adrenal glands and pancreas are unremarkable. There is no evidence of hydronephrosis bilaterally. No evidence of renal stone is seen. Fecal material is seen in the colon. There are normal size retroperitoneal and mesenteric lymph nodes. No ascites is seen. Atherosclerotic changes are present. There is infrarenal abdominal aortic aneurysm measuring 2.6 x 2.4 cm. There is diverticulosis. Pelvic sidewalls are symmetric bilaterally. Bladder is well distended without wall thickening. IMPRESSION: 1. No acute findings. CT was performed with one or more following dose reduction techniques: automated exposure control, adjustment of the mA and kv according to patient's size, or use of a iterative reconstruction technique. REASON: fall, head trauma ORDERING PHYSICIAN: DANIS FERRARI PROCEDURE: C SPIN WO - CT CERVICAL SPINE W/O CONTRAST CT CERVICAL SPINE W/O CONTRAST HISTORY: Status post fall COMPARISON: None TECHNIQUE: Multiple sequential axial images of the cervical spine were obtained including post processing sagittal and coronal reconstruction images. Patient was not given contrast through intravenous route. FINDINGS: There are degenerative changes with cervical spine spondylosis. Disc space narrowings are seen at C5-6 and C6-7 levels. There appears be punched-out lesions noted within the cervical spine. Possibility of multiple myeloma cannot be completely excluded. There is straightening of normal lordotic cervical curvature which may be related to muscle spasm or positioning. There is no loss of vertebral height. Evaluation for disc and cord pathology is limited with CT study. No evidence of fracture or dislocation is seen. IMPRESSION: 1. No fracture is seen. DJD with cervical spine spondylosis. Heterogeneous attenuation with possible punched-out lesions within the cervical spine with possibility of multiple myeloma not excluded. CT was performed with one or more following dose reduction techniques: automated exposure control, adjustment of the mA and kv according to patient's size, or use of a iterative reconstruction technique. Labs Reviewed?: Yes EKG: (+) rhythm (Sinus rhythm) EKG Comment: Date:06/07/2024 Time:1626 Ventricular rate:87 TX interval:181 QRS duration:92 QT/QTc:370 EKG interpretation: Sinus rhythm Reviewed by ED Attending no STEMI ED Course ED Course Orders Procedure Category Date Status Time Diph,Pertuss(Acell),Tet PHA 06/07/24 Complete Vac/Pf (Tdap) 14:00 Ct Head/Brain W/O CT 06/07/24 Resulted Contrast 13:51 Ct Cervical Spine W/O CT 06/07/24 Resulted Contrast 13:51 Ct Maxillofacial W/O CT 06/07/24 Resulted Contrast 13:51 Cbc With Differential LAB 06/07/24 Complete 13:51 Basic Metabolic Panel LAB 06/07/24 Complete 13:51 Pt And Ptt LAB 06/07/24 Complete 13:51 Hand 3+Vws Lt RAD 06/07/24 Resulted 13:51 Hand 3+Vws Rt RAD 06/07/24 Resulted 13:51 Shoulder Comp 2+Vws Rt RAD 06/07/24 Resulted 13:51 Ct Chest/Abd/Pelv W/O CT 06/07/24 Resulted Contrast 13:51 Wound Care (Er) CPOE 06/07/24 Transmitted 13:56 12 Lead Ekg Tracing- EKG 06/07/24 Complete Technical 15:56 Lidocaine Hcl 1% 20ml PHA 06/07/24 Complete Vial (Lidocaine Hc 16:30 Clindamycin Ivpb PHA 06/07/24 Complete 300mg/50ml (Cleocin 16:02 Laceration Tray Set CPOE 06/07/24 Transmitted Up (Er) 16:02 Neomy PHA 06/07/24 Complete Sulf/Bacitra/Polymyxin 17:30 Edm Admit Bridge Order ADM 06/07/24 Transmitted 17:05 Admit Orders ADM 06/07/24 Transmitted 17:05 Vital Signs Every 4 CPOE 06/07/24 Transmitted Hours 17:08 Daily Weights CPOE 06/07/24 Transmitted 17:08 I&O Q Shift CPOE 06/07/24 Transmitted 17:08 Activity: Bed Rest CPOE 06/07/24 Transmitted 17:08 Heart Healthy Diet DIET 06/08/24 Transmitted Breakfast Cbc With Differential LAB 06/08/24 Complete 04:00 Basic Metabolic Panel LAB 06/08/24 Complete 04:00 Magnesium LAB 06/08/24 Complete 04:00 Phosphorus LAB 06/08/24 Complete 04:00 Famotidine 20mg Tab PHA 06/07/24 In Process (Pepcid 20mg Tab) 21:00 Acetaminophen 325 Tab PHA 06/07/24 In Process (Tylenol 325mg Tab 17:30 Lactulose 20 Gm/30 Ml PHA 06/07/24 In Process Udcup (Constulose 17:30 Ondansetron 4mg Inj PHA 06/07/24 In Process (Zofran 4mg Inj) 17:30 Clonidine Hcl 0.1 Mg PHA 06/07/24 In Process Tablet (Catapres 0. 17:30 Hydralazine 20mg Inj PHA 06/07/24 In Process (Apresoline 20mg In 17:30 Labetalol 20mg Syg PHA 06/07/24 In Process (Trandate 20mg Syg) 17:30 Apply Scds CPOE 06/07/24 Transmitted 17:08 Turn Patient Q2hrs CPOE 06/07/24 Transmitted 17:08 Elevate Hob At 30 CPOE 06/07/24 Transmitted Degrees 17:08 Admit Orders ADM 06/07/24 Transmitted 17:08 Condition: CPOE 06/07/24 Transmitted 17:08 Initiate SHIRA 06/07/24 In Process Hyperglycemia Protoco 17:08 One To One Sitter CPOE 06/07/24 Transmitted 18:07 Protein Urine Dipstick LAB 06/07/24 Complete 18:10 Protein LAB 06/07/24 In Process Electrophoresis Serum 18:10 Total Protein, Serum LAB 06/07/24 Complete 18:10 Free [place]/Lambda Lt LAB 06/07/24 Logged Chains Ur 18:10 Free [place]-Lambda LAB 06/07/24 Logged Light Chain 18:10 Immunoglobulin M LAB 06/07/24 In Process 18:10 Immunoglobulin G LAB 06/07/24 In Process 18:10 Shls-[id number] LAB 06/07/24 In Process 18:10 Lactate Dehydrogenase LAB 06/07/24 Complete 18:10 Mr Spinal Canal, Cerv MRI 06/07/24 Logged W/Wo Con 18:15 Mr Spinal Canal, Lumb MRI 06/07/24 Logged W/Wo Con 18:15 Mr Spinal Canal, MRI 06/07/24 Logged Thoracic Wwo 18:15 *Nursing CPOE 06/07/24 Transmitted Communication: 18:15 0.9% Nacl 500ml PHA 06/07/24 Complete Iv.Soln (Ns 500ml 18:30 0.9%Nacl 1000ml (Ns PHA 06/07/24 In Process 1000ml) 18:30 Magnesium LAB 06/07/24 Complete 20:02 Phosphorus LAB 06/07/24 Complete 20:02 Vitamin B12 Serum LAB 06/07/24 Complete 20:02 Folic Acid Serum LAB 06/07/24 Complete 20:02 *Nursing CPOE 06/07/24 Transmitted Communication: 20:02 Trazodone Hcl PHA 06/07/24 In Process (Desyrel/Oleptro) 20:30 Urinalysis Profile LAB 06/07/24 Complete 21:04 Cefazolin Sodium PHA 06/08/24 In Process (Ancef) 00:30 Neomy PHA 06/08/24 In Process Sulf/Bacitra/Polymyxin 09:00 Hemoglobin A1c LAB 06/08/24 Complete 04:00 Thyroid Stimulating LAB 06/08/24 Complete Hormone 04:00 Carcinoembryonic Ag LAB 06/08/24 In Process 04:42 Pt Eval And Treat PT 06/08/24 Transmitted 04:42 Current Medications Medications (Trade) Dose Ordered Sig/Amarilis Route PRN Reason Start Time Stop Time Status Last Admin Dose Admin Clindamycin HCl/ Dextrose 50 ml @ 100 mls/hr ONCE STAT IV 06/07/24 16:02 06/07/24 16:31 DC 06/07/24 16:13 Diphtheria/ Tetanus/Acell Pertussis (Tdap) 0.5 ml ONCE ONCE IM 06/07/24 14:00 06/07/24 14:01 DC 06/07/24 14:42 Lidocaine HCl (Lidocaine HCl 1% 20ml Vial) 10 ml ONCE ONCE INJ 06/07/24 16:30 06/07/24 16:31 DC 06/07/24 16:13 Vital Signs Date Time Temp Pulse Resp B/P (MAP) Pulse Ox O2 Delivery O2 Flow Rate FiO2 06/08/24 04:00 98.1 68 18 136/66 97 Room Air 06/08/24 00:32 97.5 81 20 144/76 96 Room Air 06/07/24 22:25 Room Air* 0 21 06/07/24 21:55 98.1 83 20 153/86 96 Room Air 06/07/24 19:20 98.4 87 18 140/84 98 Room Air* 0 21 06/07/24 18:12 98.4 92 24 155/62 100 Room Air* 0 21 06/07/24 14:05 98.8 107 18 138/67 99 Room Air* 0 21 06/07/24 13:40 98.2 107 16 138/62 94 Room Air 0 Medical Decision Making MDM MDM: The patient is a 68-year-old male with a history of dementia, hypertension, arthritis, right eye blindness who presents to the emergency department with a ground level fall onset 12:30 p.m. after tripping while walking. Per patient's fall was witnessed by neighbors. Reports patient fell and hit his face. Denies any LOC, nausea or vomiting. Denies any blood thinners. Patient complaints of right shoulder and bilateral hand pain, face pain. Unknown last Tdap CBC showed no leukocytosis, mild normocytic anemia, chemistry showed creatinine of 1.4, GFR 54. Unchanged since previous visits . X-ray showed no acute fractu res or dislocations. Maxillofacial CT showed soft tissue swelling and deformity of the nasal bone and nasal spine could be related to fracture. CT head showed no acute intracranial bleeding. Patient will be admitted for observation. Differential diagnosis: Nasal fracture, C-spine fracture, intracerebral hemorrhage, electrolyte imbalance Comorbidities: Dementia, hypertension, arthritis Tests considered and not ordered secondary to shared decision making include: none Previous outside records reviewed: none Risk of complication and/or morbidity or mortality of patient management: The patient meets criteria for admission. Need for emergency major/minor surgery: No There are no social concerns with this patient. I independently interpreted the tests I ordered (labs, urinalysis, etc.). I discussed the case with the hospitalist for admission. Stu SINGH who accepts admission I discussed the case with the following specialists: none. Historian: pateint. I independently interpreted imaging studies and EKGs that I ordered (US, CT, XR, EKG, etc.). External chart review: none. Medical management and examination interpretation discussions were had by me with other qualified healthcare professionals as indicated for the patient's care. Procedure Procedure Dictation: Time and Date Performed: 06/07/2024 1630 INDICATION: Laceration Location: Nose Informed consent was obtained. Pre-procedure time out was obtained. Anesthetic: 1% lidocaine Manual prep of skin and wound was done with hibiclens. Foreign Body: NO foreign bodies were identified. Length Repaired: 2 cm Suture used: Ethilon for # of simple sutures:3 Aseptic technique was used during the entire procedure. Wound Location: face Wound's Depth, Shape: superficial, irregular, flap Wound Explored: contaminated Betadine Prep?: Yes Anesthesia: 1% Lidocaine Volume Anesthetic (ccs): 10 Wound Debrided: minimal Wound Repaired With: sutures Suture Size/Type: 4:0, nylon Number of Sutures: 3 DX & DISP Disposition: Inpatient Decision to Admit Date: Jun 07, 2024 Decision to Admit Time: 17:06 Departure Impression: Primary Impression: Ground-level fall Additional Impressions: Facial contusion, Nasal fracture, History of dementia Condition: Stable Referrals: MARGO FRIEDMAN M.D. (PCP) I have reviewed the case, and I agree with, Diagnosis and Plan I performed a substantive portion of the visit. I have reviewed and personally made and approve the management plan that is documented in the notes by myself with FRANCISCO/resident. I acknowledged full responsibility for the patient's management plan. DANIS FERRARI Jun 07, 2024 18:35 LOUISE BAZAN DO Jun 08, 2024 07:41
[2024-06-07 18:51] LABS: TOTAL PROTEIN, SERUM 6.9 g/dL (6.0-8.3)
[2024-06-07] MEDS: 0.9% NACL 500ML IV.SOLN 500 ML IV ONE (18:54)
[2024-06-07] MEDS: 0.9%NACL 1000ML 1,000 ML IV ONE (18:54)
--- NOTE | 2024-06-07 19:05 | NUR ---
JOSE MALDONADO MADE AWARE OF PATIENT 1;1 ORDER
[2024-06-07] MEDS: FAMOTIDINE 20MG TAB PO SCH (21:00)
[2024-06-07 21:09] LABS: PHOSPHORUS 2.9 mg/dL (2.5-4.9)
--- NOTE | 2024-06-07 21:35 | NUR ---
PATIENT TAKEN UP TO TO RM 319; WILL STAY WITH PATIENT ALL NIGHT;
[2024-06-07 21:53] LABS: APPEARANCE,URINE CLEAR (CLEAR); BILIRUBIN,URINE NEGATIVE (NEGATIVE); COLOR,URINE LIGHT-YELLOW (YELLOW); GLUCOSE, URINE (UA) 30 mg/dL (NEGATIVE); KETONES,URINE NEGATIVE (NEGATIVE); LEUKOCYTE ESTERASE ,URINE NEGATIVE Leu/uL (NEGATIVE); NITRATE,URINE NEGATIVE (NEGATIVE); OCCULT BLOOD,URINE NEGATIVE (NEGATIVE); PROTEIN,URINE 70 mg/dL (NEGATIVE); UROBILINOGEN,URINE 0.2 mg/dL (0.2-1.0)
[2024-06-07 21:55] VITALS: BP 153/86; PULSE 83; RESP 20; TEMP 98
[2024-06-07 22:03] LABS: ADD UA MICROSCOPIC YES
[2024-06-07 22:04] LABS: MUCUS,URINE RARE LPF (None Seen); SQUAMOUS EPITHELIAL CELL,UR RARE /HPF (0-2); WBC,URINE 0-1 /HPF (0-1)
[2024-06-08 00:32] VITALS: BP 144/76; PULSE 81; RESP 20; TEMP 97.6
[2024-06-08] MEDS: ceFAZolin SODIUM 2 GM VIAL IVPB SCH (00:34)
[2024-06-08 03:43] LABS: HEMOGLOBIN A1C 8.8 % (4.0-6.0)
[2024-06-08 04:00] VITALS: BP 136/66; PULSE 68; RESP 18; TEMP 98
[2024-06-08 06:48] LABS: BASOPHILS # (AUTO) 0.05 K/uL (0.00-0.20); BASOPHILS % (AUTO) 0.5 % (0.0-5.0); HEMATOCRIT 42.8 % (42-54); IMMATURE GRANULOCYTE ABSOLUTE 0.05 K/uL (0-1); LYMPHOCYTES % (AUTO) 19.2 % (21.0-51.0); MEAN CORPUSCULAR HEMOGLOBIN 29.1 pg (27.0-33.0); MEAN CORPUSCULAR HGB CONC 33.2 g/dL (32.0-36.0); MEAN CORPUSCULAR VOLUME 87.7 fL (79-99); MONOCYTES # (AUTO) 0.7 K/uL (0.1-1.0); MONOCYTES % (AUTO) 6.6 % (3.0-13.0); NEUTROPHILS # (AUTO) 7.4 K/uL (1.8-7.7); NEUTROPHILS % (AUTO) 72.2 % (40.0-77.0); PLATELET COUNT (AUTO) 265 K/uL (130-400); RED BLOOD CELL COUNT(AUTO) 4.88 MIL/uL (4.50-6.20); RED CELL DISTRIBUTION WIDTH 13.4 % (11.0-15.5); WHITE BLOOD COUNT (AUTO) 10.2 K/uL (4.8-10.8)
[2024-06-08 07:06] LABS: CREATININE 1.2 mg/dL (0.5-1.3); MAGNESIUM 1.9 mg/dL (1.80-2.40); PHOSPHORUS 3.2 mg/dL (2.5-4.9); POTASSIUM 3.9 mmol/L (3.5-5.1); THYROID STIMULATING HORMONE 2.34 uIU/mL (0.36-3.74)
[2024-06-08 08:00] VITALS: BP 148/72; PULSE 88; RESP 18; TEMP 97.6; O2SAT 99
[2024-06-08] MEDS: NEOMY SULF/BACITRA/POLYMYXIN B 1 EACH PACKET TP SCH (08:26)
[2024-06-08 12:00] VITALS: BP 142/76; PULSE 86; RESP 18; TEMP 97.8
--- NOTE | 2024-06-08 12:53 | PN ---
[facility] PROGRESS NOTE Date Patient Seen: Jun 08, 2024 Time of Visit: 12:52 Supervising Physician: [Dr. Celis] Primary Care Physician: [Dr. Rufina Hanna ] Outpatient Specialists: [ ] Inpatient Consults: [ ] PROBLEM LIST: Ground-level fall sustaining skin laceration on forehead, arms and nasal bridge- POA Recurrent falls-POA Acute encephalopathy, likely multifactorial from dementia vs. metabolic vs. rule-out infectious pending UA-POA Rule-out multiple myeloma-POA Infrarenal abdominal aortic aneurysm measuring 2.6 x 2.4 cm.-POA KRISTIE on CKD 4-POA Dehydration-POA Facial wound and laceration concern for development of non-purulent cellulitis s/p stitches-POA Behavioral agitation and sundowning-POA Primary HTN HLD Dementia Hallucination, visual and auditory HX of prior right-sided CVA Right eye blindness PLAN: -IV fluid for hydration UA negative Pending Multiple myeloma blood work-up, if significant, consider consult with oncology -Obtain MRI of the spine -Manage electrolytes, replete PRN -Continue on IV Ancef for prophylactic coverage of skin infection related to fall, also apply triple antibiotic ointment TID -Avoid mind-altering meds and sedatives -1:1 sitter for safety -PT/OT to eval and treat -Obtain B2M and CEA -Watchful surveillance on the incidental findings of infrarenal aortic aneurysm INTERVAL HISTORY: [Patient is evaluated at bedside. Maxillofacial CT shows possible fracture to nasal bridge and nasal spine. Complains of mild pain to same area. Does have abrasion as well. No signs of active bleeding or nasal obstruction. His CBC is unremarkable, hemoglobin remained stable at 14. INR is 0.9. UA is negative for acute infection. He is pending MRI of the spine and multiple myeloma labs. Patient has a history of frequent falls, no family at bedside but we will c onsider SNF, pending PT evaluation.] REVIEW OF SYSTEMS: Unable to perform 12 point ROS due to patient's dementia. PHYSICAL EXAM: GENERAL: alert, weak, awake oriented to self and HEENT: EOMI, Sclera non icteric, dry mucosa, right eye blind NECK: Supple, no JVD, trachea midline LUNGS: Clear breath sounds bilaterally. No wheezes HEART: Regular rate and rhythm. Normal S1 and S2, without murmurs ABD: Abdomen soft, nontender. Bowel sounds present EXT: No clubbing cyanosis or edema SKIN: forehead wound, nasal bridge laceration with stitches, BUE wounds sustained from mechanical fall NEURO: Alert and oriented to person, follows commands Vital Signs (last 8hr) Date Time Temp Pulse Resp B/P (MAP) Pulse Ox O2 Delivery O2 Flow Rate FiO2 06/08/24 08:00 97.5 88 18 148/72 98 Room Air LABS: Hematology Labs: Test 06/08/24 06:26 Range/Units White Blood Count 10.2 4.8-10.8 K/uL Red Blood Count 4.88 4.50-6.20 MIL/uL Hemoglobin 14.2 14.0-18.0 g/dL Hematocrit 42.8 42-54 % Mean Corpuscular Volume 87.7 79-99 fL Mean Corpuscular Hemoglobin 29.1 27.0-33.0 pg Mean Corpuscular Hemoglobin Concent 33.2 32.0-36.0 g/dL Red Cell Distribution Width 13.4 11.0-15.5 % Platelet Count 265 130-400 K/uL Mean Platelet Volume 10.2 7.5-10.5 fL Immature Granulocyte % (Auto) 0.5 0-1 % Neutrophils (%) (Auto) 72.2 40.0-77.0 % Lymphocytes (%) (Auto) 19.2 L 21.0-51.0 % Monocytes (%) (Auto) 6.6 3.0-13.0 % Eosinophils (%) (Auto) 1.0 0.0-8.0 % Basophils (%) (Auto) 0.5 0.0-5.0 % Neutrophils # (Auto) 7.4 1.8-7.7 K/uL Lymphocytes # (Auto) 2.0 1.0-4.8 K/uL Monocytes # (Auto) 0.7 0.1-1.0 K/uL Eosinophils # (Auto) 0.10 0.00-0.70 K/uL Basophils # (Auto) 0.05 0.00-0.20 K/uL Absolute Immature Granulocyte (auto 0.05 0-1 K/uL Nucleated Red Blood Cells 0.0 0.0-0.19 % Chemistry Labs: Test 06/08/24 06:26 06/07/24 15:13 06/07/24 13:53 Range/Units Sodium Level 141 136-145 mmol/L Potassium Level 3.9 3.5-5.1 mmol/L Chloride Level 107 101-111 mmol/L Carbon Dioxide Level 24 21-32 mmol/L Blood Urea Nitrogen 18 7-18 mg/dL Creatinine 1.2 0.5-1.3 mg/dL Glomerular Filtration Rate Calc 65 >90 mL/min Random Glucose 170 H 70-105 mg/dL Total Calcium 9.1 8.5-10.1 mg/dL Phosphorus Level 3.2 2.5-4.9 mg/dL Magnesium Level 1.90 1.80-2.40 mg/dL Thyroid Stimulating Hormone (TSH) 2.34 0.36-3.74 uIU/mL Hemoglobin A1c 8.8 H 4.0-6.0 % Estimated Average Glucose (eAG) 206 H 70-126 mg/dL Vitamin B12 Level 538 193-986 pg/mL Folic Acid (LAB) > 20.00 H 2-20 ng/mL Lactate Dehydrogenase 206 81-234 U/L Total Protein 6.9 6.0-8.3 g/dL Coagulation Labs: Test 06/07/24 15:13 Range/Units Prothrombin Time 10.5 9.6-11.6 SEC Prothromb Time International Ratio 0.99 0.85-1.15 Activated Partial Thromboplast Time 24.5 L 26.3-35.5 SEC DIAGNOSTICS / RADIOLOGY RESULTS: [ ] PLAN NEURO: Minimize central acting medications as possible. Maintain fall precautions, adequate lighting during the day PULMONARY: Supplemental 02 as needed. Maintain aspiration precautions at all times CARDIOVASCULAR: Follow hemodynamics. Vital signs per facility protocol GI & NUTRITION: Continue with nutritional support. Continue stool softeners and laxatives as needed. KIDNEYS & ELECTROLYTES: Strict monitoring of intake, output and overall fluid balance. Avoid nephrotoxic medications to the extent possible. Medications to be dosed according to renal function. Monitor electrolytes and replace as needed ENDOCRINE: Maintain blood glucose between 100-180 at all times. Hypoglycemia protocol in place INFECTIOUS DISEASE: Trend temperature, WBC and procalcitonin level Follow cultures, deescalate antibiotics as soon as possible. Panculture if new onset fever ONCOLOGY/HEMATOLOGY/COAGULATION: Monitor for s/s of bleeding Monitor hemoglobin, coagulation studies as needed SKIN: Pressure ulcer prevention per facility protocol Specialty mattress ORTHO/REHAB: Continue PT/OT Prophylaxis: Continue GI and DVT prophylaxis Code Status: Full Resuscitation Disposition: TBD Other: Total patient care time: 35 minutes GISEL ELLIS Jun 08, 2024 12:53
--- NOTE | 2024-06-08 14:10 | NUR ---
DCP -- Home Patient speak s [place], patient knows his name and date of , otherwise disoriented. Melissa Cao, Spouse [phone] completed interview via telephone. Melissa Garcias, Spouse [phone] states patient lives with her in a recreational vehicle with a ramp and tub. States patient is retired and disabled, unable to make decisions for himself and does not drive. States patient requires full assistance to complete ADL's. States he has a shower chair, cane, walker with a seat and hospital bed. Denies home health services, home care provider or dialysis. PCP - Rufina Hanna MD Pharmacy - [facility]. Upon discharge, states Melissa Cao, Spouse [phone] will find a friend or neighbor to take him home and she will continue to assist with care. Requested assistance to get a wheelchair and remodel bathroom to prevent falls; referred to PCP and [facility]; notified Rosemary. LARKIN HX -- Melissa Cao, Spouse [phone] states he may have dementia, HX of two strokes in the past causing more disorientation and physical imbalance. Addendum: 06/08/24 at 1420 by BEVERLY LAKHANI RN CM Amended: Links added.
[2024-06-08 16:00] VITALS: BP 141/72; PULSE 70; RESP 18; TEMP 98.1
[2024-06-08] MEDS ORDERED: TRAZ-185 PO (18:38)
[2024-06-08] MEDS ORDERED: DIVA125C11 PO (18:38)
[2024-06-08] MEDS ORDERED: PRED10TA3 PO (18:38)
[2024-06-08] MEDS ORDERED: ATOR40TA71 PO (18:38)
[2024-06-08] MEDS ORDERED: POLY250020 PO (18:38)
[2024-06-08] MEDS ORDERED: MEMA10TA21 PO (18:38)
[2024-06-08] MEDS ORDERED: MONT-39 PO (18:38)
[2024-06-08] MEDS ORDERED: QUET25TA36 PO (18:38)
[2024-06-08] MEDS ORDERED: ICOS1CAP2 PO (18:38)
[2024-06-08] MEDS ORDERED: FOLI1 PO (18:38)
[2024-06-08] MEDS ORDERED: AMLO-257 PO (18:38)
[2024-06-08] MEDS ORDERED: DOCU100C33 PO (18:38)
[2024-06-08] MEDS ORDERED: LATA2.5D14 OP (18:38)
[2024-06-08 20:40] VITALS: O2SAT 98
[2024-06-08] MEDS: cloNIDine HCL 0.1 MG TABLET PO PRN (20:43)
[2024-06-08] MEDS: trAZOdone HCL 50 MG TAB PO PRN (20:43)
[2024-06-09 00:28] VITALS: BP 143/58; PULSE 89; RESP 20; TEMP 97.7
[2024-06-09 04:00] VITALS: BP 148/58; PULSE 76; RESP 18; TEMP 97.7
[2024-06-09 09:09] VITALS: O2SAT 96
--- NOTE | 2024-06-09 12:31 | DS ---
[facility] DISCHARGE SUMMARY Date Patient Seen: Jun 09, 2024 Time of Visit: 12:30 Supervising Physician: [Dr. Celis] Primary Care Physician: [Dr. Rufina Hanna ] Outpatient Specialists: [ ] Inpatient Consults: [ ] PROBLEM LIST: Ground-level fall sustaining skin laceration on forehead, arms and nasal bridge- POA Recurrent falls-POA Acute encephalopathy, likely multifactorial from dementia vs. metabolic vs. rule-out infectious pending UA-POA Rule-out multiple myeloma-POA Infrarenal abdominal aortic aneurysm measuring 2.6 x 2.4 cm.-POA KRISTIE on CKD 4-POA Dehydration-POA Facial wound and laceration concern for development of non-purulent cellulitis s/p stitches-POA Behavioral agitation and sundowning-POA Primary HTN HLD Dementia Hallucination, visual and auditory HX of prior right-sided CVA Right eye blindness PLAN: Follow-up with Oncology outpatient for evaluation of suspected multiple myeloma Follow-up with PCP for social studies department chair as requested HOSPITAL COURSE: HPI (per admitting provider) Patient was evaluated at bedside with family present. She is feeling improved from admission. Labs including CBC and BNP are within normal limits. KRISTIE has resolved with IVF. TSH and lipids are unremarkable. Imaging studies including MRI/MRA are within normal limits. UA shows small leukocyte esterase, pending urine culture. Patient states she was helping her son clean his house and was very hot indoors. She then went outside to rest in the patio and while speaking to her son she experienced a brief episode of loss of consciousness with syncope. States she has had this happen once or twice in the past, without official diagnosis of stroke or TIA. She had otherwise been in relatively good health and only takes medication for cholesterol and blood pressure. She was found to be in acute dehydration on admission and has received IV fluids. She denies any headache, blurry vision, chest pain, palpitations or other related symptoms at this time 06/08 Patient is evaluated at bedside. Maxillofacial CT shows possible fracture to nasal bridge and nasal spine. Complains of mild pain to same area. Does have abrasion as well. No signs of active bleeding or nasal obstruction. His CBC is unremarkable, hemoglobin remained stable at 14. INR is 0.9. UA is negative for acute infection. He is pending MRI of the spine and multiple myeloma labs. Patient has a history of frequent falls, no family at bedside but we will consider SNF, pending PT evaluation. 06/09 patient is evaluated at bedside. No family present. Per case management note, patient was offered SNF services however and patient declined. Patient has not had any nosebleeds. He is able to breathe freely through his nose without any signs or symptoms of obstruction. Was advised to continue topical antibiotic as indicated and use Tylenol as needed for pain. Patient was advised to follow up with Oncology outpatient for further evaluation of suspected multiple myeloma. Follow-up with PCP for labs that were ordered this admission. The patient was treated for the following problems: ACTIVE PROBLEM LIST FOR THE HOSPITALIZATION: CHRONIC PROBLEMS: continue previous management per PCP unless otherwise indicated [employer] INST[employer]ER FINDINGS/RECOMMENDATIONS: [ ] PROCEDURES: as mentioned above DISCHARGE MEDICATIONS: Pt hemodynamically stable and afebrile at time of discharge. PCP notified of patients admission, hospital course and discharge. Continued Medications: Amlodipine Besylate (Amlodipine Besylate) 5 Mg Tablet 2 TAB PO DAILY for 30 Days, #30 TAB 0 Refills Atorvastatin Calcium (Atorvastatin Calcium) 40 Mg Tablet 1 TAB PO DAILY for 30 Days, #30 TAB 0 Refills Divalproex Sodium (Divalproex Sodium) 125 Mg Cap.sprink 1 CAP PO BID for 30 Days, #60 CAP 0 Refills Docusate Sodium (Docusate Sodium) 100 Mg Capsule 1 CAP PO DAILY for constipation for 30 Days, #30 CAP 0 Refills Folic Acid (Folvite) 1 Mg Tab 1 TAB PO DAILY for 30 Days, #30 TAB 0 Refills Icosapent Ethyl (Icosapent Ethyl) 1 Gram Capsule 2 CAP PO BID for 30 Days, #120 CAP 0 Refills Latanoprost (Latanoprost) 0.005 % Drops 1 DROP OP HS, ML 0 Refills Memantine HCl (Memantine HCl) 10 Mg Tablet 1 TAB PO BID for 30 Days, #60 TAB 0 Refills Montelukast Sodium (Montelukast Sodium) 10 Mg Tablet 1 TAB PO DAILY for 30 Days, #30 TAB 0 Refills Polyethylene Glycol 3350 (Polyethylene Glycol 3350) 2,500 Gm Powder 17 GM PO DAILY for constipation for 30 Days, #527 GM 0 Refills Prednisone (Prednisone) 10 Mg Tablet 1 TAB PO DAILY for 3 Days, #5 TAB 0 Refills Quetiapine Fumarate (Quetiapine Fumarate) 25 Mg Tablet 1 TAB PO BID for 30 Days, #30 TAB 0 Refills Trazodone HCl (Trazodone HCl) 50 Mg Tablet 2 TAB PO BID for 30 Days, #30 TAB 0 Refills PHYSICAL EXAM: GENERAL: alert, weak, awake oriented to self and HEENT: EOMI, Sclera non icteric, dry mucosa, right eye blind NECK: Supple, no JVD, trachea midline LUNGS: Clear breath sounds bilaterally. No wheezes HEART: Regular rate and rhythm. Normal S1 and S2, without murmurs ABD: Abdomen soft, nontender. Bowel sounds present EXT: No clubbing cyanosis or edema SKIN: forehead wound, nasal bridge laceration with stitches, BUE wounds sustained from mechanical fall NEURO: Alert and oriented to person, follows commands FOLLOW-UP: Follow-up with PCP in 2-3 days for routine evaluation. Follow-up with Oncology outpatient for evaluation of suspected multiple myeloma. RECOMMENDATIONS: See Discharge Instructions This case was seen and discussed with my supervising physician. More than 30 minutes spent on discharge process, including evaluation of the patient, discussion with nursing staff, medication reconciliation and follow-up appointments GISEL ELLIS Jun 09, 2024 12:30
[2024-06-09 12:52] VITALS: BP 133/68; PULSE 74; RESP 19; TEMP 98.7
[2024-06-09] MEDS ORDERED: GADOTERATE MEGLUMINE 10 MMOL/20 ML VIAL IV ONE (15:32)
--- NOTE | 2024-06-09 15:46 | HMCIMG ---
MR SPINAL CANAL, THORACIC WWO HISTORY: Multiple myeloma COMPARISON: None TECHNIQUE: MRI of the thoracic spine was performed utilizing multiple pulse sequences in axial and sagittal plane. Patient was given 14 cc of clear skin through intravenous route. FINDINGS: No abnormal signal intensity is seen of the visualized bony structure. No loss of vertebral height is seen. Degenerative disc signals are present at all thoracic spine levels. The thoracic cord is of normal signal intensity without cord compression or impingement. Small right renal cyst is seen. There is no focal disc herniation or neural foraminal stenosis. IMPRESSION: 1. No focal disc herniation or neural foraminal stenosis is seen. Gallstone is seen in the distended gallbladder. Gallstone is seen in the distended gallbladder. Common duct measures 4.2 mm. There are questionable tiny common duct stones. No definite MR evidence of bone lesion is seen. No abnormal enhancement is seen.
--- NOTE | 2024-06-09 15:52 | HMCIMG ---
MR SPINAL CANAL, LUMB W/WO CON HISTORY: Lytic lesions COMPARISON: None TECHNIQUE: MRI of the lumbar spine was performed utilizing multiple pulse sequences in axial , coronal and sagittal plane. Patient was given 14 cc of clear scanner through intravenous route. FINDINGS: No abnormal signal intensity is seen of the visualized bony structure. No loss of vertebral height is seen. There is straightening of normal lumbar curvature which may be related to muscle spasm or positioning. Degenerative disc signals are present at all lumbar spine levels. Visualized distal conus is unremarkable. Bladder is markedly distended. Bilateral small renal cysts are seen. At the L1-L2 level, there is mild annular disc bulge causing anterior thecal sac compression with bilateral lateral recess stenosis without associated neural foraminal stenosis. The thecal sac measures approximately 9.1 mm in its anterior posterior dimension. At the L2-3 level, there is spondylotic disc with central disc protrusion causing anterior thecal sac compression with bilateral lateral recess stenosis and bilateral neural foraminal stenosis. The thecal sac measures approximately 8.5 mm in its anterior posterior dimension. At the L3-4 level, there is spondylotic disc with bilateral ligamentum flavum hypertrophy causing anterior thecal sac compression with bilateral lateral recess stenosis and bilateral neural foraminal stenosis. The thecal sac measures approximately 7 mm in its anterior posterior dimension. At the L4-5 level, there is spondylotic disc with annular disc bulge and bilateral ligamentum flavum hypertrophy causing anterior thecal sac compression with bilateral lateral recess stenosis and bilateral neural foraminal stenosis. The thecal sac measures approximately 2.6 mm in its anterior posterior dimension. At the L5-S1 level, there is spondylotic disc with bilateral ligamentum flavum hypertrophy causing anterior thecal sac compression with bilateral lateral recess stenosis and bilateral neural foraminal stenosis. The thecal sac measures approximately 8.2 mm in its anterior posterior dimension. IMPRESSION: 1. DJD of the lumbar spine spondylosis and central canal narrowing as described above. No bony lesions or abnormal enhancement is seen. Gallstone is seen in the gallbladder.
--- NOTE | 2024-06-09 16:03 | HMCIMG ---
MR SPINAL CANAL, CERV W/WO CON HISTORY: Lytic lesion COMPARISON: None TECHNIQUE: MRI of the cervical spine was performed utilizing multiple pulse sequences in axial, coronal and sagittal plane. Patient was given 14 cc of clear scan through intravenous route. FINDINGS: No abnormal signal intensity is seen of the visualized bony structure. No loss of vertebral height is seen. There is straightening of normal lordotic cervical curvature which may be related to muscle spasm or positioning. Degenerative disc signals are present at all cervical spine levels. Cerebellar tonsils are in normal position. The cervical cord is of normal signal intensity without cord compression or impingement. No mass lesion or abnormal enhancement is seen. There are bilateral mastoid effusion with right more than left. At the C2-3 level, there is spondylotic disc causing anterior CSF space effacement with bilateral lateral recess stenosis and bilateral neural foraminal stenosis. The central canal measures approximately 6.3 mm in its anterior posterior dimension. At the C3-4 level, there is spondylotic disc causing anterior CSF space effacement with bilateral lateral recess stenosis and bilateral neural foraminal stenosis. The central canal measures approximately 4.5 mm in its anterior posterior dimension. At the C4-5 level, there is spondylotic disc causing anterior CSF space effacement with bilateral lateral recess stenosis and bilateral neural foraminal stenosis. The central canal measures approximately 5.0 mm in its anterior posterior dimension. At the C5-6 level, there is spondylotic disc causing anterior CSF space effacement with bilateral lateral recess stenosis and bilateral neural foraminal stenosis. The central canal measures approximately 3.96 mm in its anterior posterior dimension. At the C6-7 level, there is spondylotic disc causing anterior CSF space effacement with bilateral lateral recess stenosis and bilateral neural foraminal stenosis. The central canal measures approximately 5.3 mm in its anterior posterior dimension. IMPRESSION: 1. DJD of the cervical spine spondylosis and central canal narrowing as described above.
--- NOTE | 2024-06-09 16:22 | NUR ---
DISCHARGE/IV DISCONTINUATION. PATIENT DISCHARGED TO HOME. PATIENT'S SPOUSE INSTRUCTED TO FOLLOW UP WITH PCP. PATIENT'S SPOUSE ASLO INSTRUCTED TO F/U WITH OUTPATIENT ONCOLOGIST FOR EVALUATION. PATIENT ALSO INSTRUCTED TO CONTINUE WITH HOME MEDICATIONS. DISCHARGE INFORMATION AND EDUCATION PROVIDED TO PATIENT AND SPOUSE. ALL QUESTIONS ANSWERED. PERIPHERAL IV DISCONTINUED.
[2024-06-10 15:14] LABS: ALBUMIN (PEP) 3.1 g/dL (2.9-4.4)
== END 2024-06-09 16:15 | disposition home or self-care (01) ==
LOC: EDH 13:19 → EDHIP 17:08 → 3CH 22:01
PROVIDERS: ADMIT Internal Medicine; ATTEND Internal Medicine
DX: S01.21XA Laceration without foreign body of nose, initial encounter (principal); S41.112A Laceration without foreign body of left upper arm, initial encounter; S41.111A Laceration without foreign body of right upper arm, initial encounter; R29.6 Repeated falls; I12.9 Hypertensive chronic kidney disease with stage 1 through stage 4 chronic kidney disease, or unspecified chronic kidney disease; N18.4 Chronic kidney disease, stage 4 (severe); E86.0 Dehydration; E78.5 Hyperlipidemia, unspecified; R44.0 Auditory hallucinations; R44.1 Visual hallucinations; N17.9 Acute kidney failure, unspecified; H54.61 Unqualified visual loss, right eye, normal vision left eye; F05 Delirium due to known physiological condition; S01.81XA Laceration without foreign body of other part of head, initial encounter; G93.40 Encephalopathy, unspecified; I71.43 Infrarenal abdominal aortic aneurysm, without rupture; F03.92 Unspecified dementia, unspecified severity, with psychotic disturbance; Z86.73 Personal history of transient ischemic attack (TIA), and cerebral infarction without residual deficits; Z79.899 Other long term (current) drug therapy; Z23 Encounter for immunization; W01.0XXA Fall on same level from slipping, tripping and stumbling without subsequent striking against object, initial encounter; Y93.01 Activity, walking, marching and hiking; Y92.89 Other specified places as the place of occurrence of the external cause; Y99.8 Other external cause status
CPT/HCPCS: 96361; 96375; 99285; 83036; 83615; 83735 ×2; 84100 ×2; 84155 ×2; 80048 ×2; 85025 ×2; 85610; 85730; 82607; 82746; 81001; 82044; 36415; 90715; 73130 ×2; 73030; 70450; 72125; 71250; 70486; 74176; 90471; 12011; 93005; 96365; 96366 ×2; 84443; 82232; 84165; 82378; 82784 ×2; 97161; 97116; 72156; 72158; 72157; 97530 ×2; G0378 ×46; J3490; J0690 ×5; A9575

== ENCOUNTER 2024-07-29 17:47 | Emergency (ER) | payer OTHER, MEDICARE ==
[~2024-07-29] VITALS: Ht 160 cm; Wt 68.0 kg
[~2024-07-29 17:47] MED LIST changes: -ALBU18HF7 IH; +AMLO-257 PO; -AMLO5TAB4 PO; +DIVA125C11 PO; -DIVA125T32 PO; +DOCU100C33 PO; +LATA2.5D14 OP; +POLY250020 PO; +PRED10TA3 PO; -PRED20TA3 PO; -TAMS-55 PO; +TRAZ-185 PO; -TRAZ-253 PO; -XALA2.5OS OU
[2024-07-29] MEDS: 0.9% NACL 500ML IV.SOLN 500 ML IV ONE (18:25)
[2024-07-29] MEDS: Solu-medROL 125MG VIAL IVP ONE (18:26)
--- NOTE | 2024-07-29 18:30 | ERN ---
General Chief Complaint: Congestion Stated Complaint: CONGESTION,COUGH Time Seen by MD: 18:14 Time Seen by Midlevel: 18:14 Source: patient, family (), EMS History of Present Illness Initial Comments Patient is a 68-year-old male with a past medical history of type 2 diabetes, hypertension, hyperlipidemia, and a previous stroke with residual right-sided weakness presenting to the emergency department via EMS for evaluation of cough congestion that has been ongoing for one week. No fever, chills, or any other symptoms reported at this time. Allergies: Coded Allergies: No Known Drug Allergies (Unverified Allergy, Unknown, 05/02/21) Home Meds Active Scripts Azithromycin (Azithromycin) 250 Mg Tablet, 1 TAB PO AD for 5 Days, #6 TAB 0 Refills 2 the first day followed by 1 for days 2-5 Prov:LIZZY CHAVES 07/29/24 Reported Medications Polyethylene Glycol 3350 (Polyethylene Glycol 3350) 2,500 Gm Powder, 17 GM PO DAILY for constipation for 30 Days, #527 GM 0 Refills 06/08/24 Folic Acid (Folvite) 1 Mg Tab, 1 TAB PO DAILY for 30 Days, #30 TAB 0 Refills 06/08/24 Latanoprost (Latanoprost) 0.005 % Drops, 1 DROP OP HS, ML 0 Refills 06/08/24 Amlodipine Besylate (Amlodipine Besylate) 5 Mg Tablet, 2 TAB PO DAILY for 30 Days, #30 TAB 0 Refills 06/08/24 Prednisone (Prednisone) 10 Mg Tablet, 1 TAB PO DAILY for 3 Days, #5 TAB 0 Refills 06/08/24 Memantine HCl (Memantine HCl) 10 Mg Tablet, 1 TAB PO BID for 30 Days, #60 TAB 0 Refills 06/08/24 Divalproex Sodium (Divalproex Sodium) 125 Mg Cap.sprink, 1 CAP PO BID for 30 Days, #60 CAP 0 Refills 06/08/24 Trazodone HCl (Trazodone HCl) 50 Mg Tablet, 2 TAB PO BID for 30 Days, #30 TAB 0 Refills 06/08/24 Quetiapine Fumarate (Quetiapine Fumarate) 25 Mg Tablet, 1 TAB PO BID for 30 Days, #30 TAB 0 Refills 06/08/24 Icosapent Ethyl (Icosapent Ethyl) 1 Gram Capsule, 2 CAP PO BID for 30 Days, #120 CAP 0 Refills 06/08/24 Atorvastatin Calcium (Atorvastatin Calcium) 40 Mg Tablet, 1 TAB PO DAILY for 30 Days, #30 TAB 0 Refills 06/08/24 Montelukast Sodium (Montelukast Sodium) 10 Mg Tablet, 1 TAB PO DAILY for 30 Days, #30 TAB 0 Refills 06/08/24 Docusate Sodium (Docusate Sodium) 100 Mg Capsule, 1 CAP PO DAILY for constipation for 30 Days, #30 CAP 0 Refills 06/08/24 Past Medical History Past Medical History: CVA, Dementia, Diabetes-Type II, High Cholesterol, Hypertension Past Surgical History: None Surgical History Other: RT SX Family History Family History: Negative Social History Social History: Negative, Lives with family, Other ROS Dictation CONSTITUTIONAL: Negative except for HPI HEAD/FACE: Negative except for HPI EENT: Negative except for HPI RESPIRATORY: Negative except for HPI GASTROINTESTINAL/ABDOMINAL: Negative except for HPI GENITOURINARY: Negative except for HPI MUSCULOSKELETAL: Negative except for HPI INTEGUMENTARY: Negative except for HPI NEUROLOGICAL/PSYCH: Negative except for HPI HEMATOLOGIC/LYMPHATIC: Negative except for HPI All Systems Negative, Except as noted above. 13 point review of systems assessed and all negative except for above. Physical Exam Physical Exam Dictation Vital Signs reviewed General Appearance: Alert, oriented x 3, no acute distress, well developed, nourished. Head and Face: non-traumatic. Eyes: PERRL, pink conjunctivas, eyelid no trauma, anterior chamber with arcus senilis. Ears: Pinnas intact and no signs of trauma or erythema ear canals clear and no discharge TM no erythema Nose: No discharge, no bleeding. Oropharynx: Mouth normal, tongue pink, pharynx clear,no erythema, tonsils no exudates, no abscesses noted, mucous membrane moist Neck: Supple, non-tender, no thyromegaly, no masses, no JVD, no bruits Breast:Deferred Chest:No tenderness, no crepitus, no paradoxical movement, no retractions Lungs: Crackles to bilateral lung gongora worse on the right Heart: Regular rate, regular rhythm, no murmur, no gallops Vascular: no peripheral edema, Abdomen: Soft, positive bowel sounds, nondistended, no guarding, nontender, no rebound, no masses no hepatomegaly, no splenomegaly, no Russo's sign, no hernias. Rectal: Deferred Genital: Deferred Neurological: Normal speech, motor function intact, sensory function intact Musculoskeletal: Neck nontender, full range of motion, back nontender, full range of motion, Extremities: nontender, full range of motion Skin: Color pink, dry, no turgor, no rash, no lacerations, no abrasions, no contusions. Lymphatic: Deferred Results Laboratory and Microbiology Lab and Micro Result Laboratory Tests Test 07/29/24 18:26 07/29/24 18:30 Influenza Type A Antigen Negative For Type A Influenza Type B Antigen Negative For Type B SARS-CoV-2, RNA, NAAT NEGATIVE SARS CoV-2 White Blood Count 9.9 K/uL (4.8-10.8) Red Blood Count 4.84 MIL/uL (4.50-6.20) Hemoglobin 13.9 g/dL (14.0-18.0) L Hematocrit 42.3 % (42-54) Mean Corpuscular Volume 87.4 fL (79-99) Mean Corpuscular Hemoglobin 28.7 pg (27.0-33.0) Mean Corpuscular Hemoglobin Concent 32.9 g/dL (32.0-36.0) Red Cell Distribution Width 13.2 % (11.0-15.5) Platelet Count 270 K/uL (130-400) Mean Platelet Volume 11.0 fL (7.5-10.5) H Immature Granulocyte % (Auto) 0.6 % (0-1) Neutrophils (%) (Auto) 78.5 % (40.0-77.0) H Lymphocytes (%) (Auto) 12.0 % (21.0-51.0) L Monocytes (%) (Auto) 7.2 % (3.0-13.0) Eosinophils (%) (Auto) 1.1 % (0.0-8.0) Basophils (%) (Auto) 0.6 % (0.0-5.0) Neutrophils # (Auto) 7.8 K/uL (1.8-7.7) H Lymphocytes # (Auto) 1.2 K/uL (1.0-4.8) Monocytes # (Auto) 0.7 K/uL (0.1-1.0) Eosinophils # (Auto) 0.11 K/uL (0.00-0.70) Basophils # (Auto) 0.06 K/uL (0.00-0.20) Absolute Immature Granulocyte (auto 0.06 K/uL (0-1) Nucleated Red Blood Cells 0.0 % (0.0-0.19) Sodium Level 139 mmol/L (136-145) Potassium Level 4.0 mmol/L (3.5-5.1) Chloride Level 104 mmol/L (101-111) Carbon Dioxide Level 28 mmol/L (21-32) Blood Urea Nitrogen 20 mg/dL (7-18) H Creatinine 1.1 mg/dL (0.5-1.3) Glomerular Filtration Rate Calc 72 mL/min (>90) Random Glucose 238 mg/dL (70-105) H Lactic Acid Level 1.8 mmol/L (0.8-2.5) Total Calcium 9.0 mg/dL (8.5-10.1) Magnesium Level 1.90 mg/dL (1.80-2.40) Total Creatine Kinase 142 U/L (21-232) # Troponin I High Sensitivity 10 ng/L (4-75) B-Type Natriuretic Peptide 15 pg/mL (0-100) Labs Reviewed?: Yes MDM MDM: Patient is a 68-year-old male with a past medical history of type 2 diabetes, hypertension, hyperlipidemia, and a previous stroke with residual right-sided weakness presenting to the emergency department via EMS for evaluation of cough congestion that has been ongoing for one week. No fever, chills, or any other symptoms reported at this time. On physical examination the patient is lying in bed in no acute respiratory distress. Lung auscultation reveals crackles to bilateral lung gongora. Septic workup initiated. Lactic acid normal. CBC shows no leukocytosis. Chemistries are stable. BNP is within normal ranges. Chest x-ray shows mild perihilar atelectasis concerning for early pneumonia. Patient was given a breathing treatment and IV steroids in the emergency department. Both the patient and family do not want to stay in the hospital so he will be treated outpatient with azithromycin. Strict return precautions were given. Admission for further observation and management was offered but was declined. Differential diagnosis: Pneumonia, pulmonary edema, pleural effusion, fluid overload There are no social concerns with this patient. Prescription drug management Prescriptions will include: Azithromycin Medical management and examination interpretation discussions were had by me with other qualified healthcare professionals as indicated for the patient's care. ED Course Orders Procedure Category Date Status Time 12 Lead Ekg Tracing- EKG 07/29/24 Complete Technical 18:19 B-Type Natriuretic LAB 07/29/24 Complete Peptide 18:19 Cbc With Differential LAB 07/29/24 Complete 18:19 Basic Metabolic Panel LAB 07/29/24 Complete 18:19 Creatine Kinase, Total LAB 07/29/24 Complete 18:19 Lactic Acid LAB 07/29/24 Complete 18:19 Magnesium LAB 07/29/24 Complete 18:19 Troponin I High LAB 07/29/24 Complete Sensitivity 18:19 Chest 1vw RAD 07/29/24 Resulted 18:19 Covid Rna Naat LAB 07/29/24 Complete 18:19 Influenza Type A & B, LAB 07/29/24 Complete Rapid 18:19 Methylprednisolone PHA 07/29/24 Complete Succ 125mg (Solu-Medr 18:30 Ipratropium/Albuterol PHA 07/29/24 Complete Neb (Duoneb) 18:30 0.9% Nacl 500ml PHA 07/29/24 Complete Iv.Soln (Ns 500ml 18:30 Ceftriaxone 1g Vial PHA 07/29/24 Complete (Rocephine 1g Inj) 21:00 Current Medications Medications (Trade) Dose Ordered Sig/Amarilis Route PRN Reason Start Time Stop Time Status Last Admin Dose Admin Albuterol (DUOneb) 1 UDVIAL ONCE ONCE IH 07/29/24 18:30 07/29/24 18:31 DC 07/29/24 19:12 Ceftriaxone Sodium (ROCEphine 1G INJ) 1 gm ONCE ONCE IVPB 07/29/24 21:00 07/29/24 21:01 DC 07/29/24 21:31 Methylprednisolone Sodium Succinate (Solu-medROL 125MG) 125 mg ONCE ONCE IVP 07/29/24 18:30 07/29/24 18:31 DC 07/29/24 18:26 Sodium Chloride 500 ml @ 0 mls/hr ONCE ONCE IV 07/29/24 18:30 07/29/24 18:31 DC 07/29/24 18:25 Vital Signs Date Time Temp Pulse Resp B/P (MAP) Pulse Ox O2 Delivery O2 Flow Rate FiO2 07/29/24 19:40 98.2 81 20 120/70 97 Room Air* 0 21 07/29/24 19:17 69 17 07/29/24 18:20 98.2 80 16 138/90 98 Room Air* 0 07/29/24 17:54 97.3 84 16 146/69 99 Room Air 0 [facility] [address] [place] [address] IMAGING REPORT Signed PATIENT: WALT VEGA MR#: [id number] : 1955 SEX: M AGE: 68 LOCATION: [facility] ORDER 21 STATUS: REG ER REPORT#: [id number] SERVICE 18 REASON: sob/cough/congestion ORDERING PHYSICIAN: LIZZY CHAVES PROCEDURE: CXR1VW - CHEST 1VW PORTABLE CHEST RADIOGRAPH INDICATION: sob/cough/congestion COMPARISON: 06/07/2024 CT chest FINDINGS: ekg monitor tech leads overlie the field of view. Heart size is normal. The pulmonary vascularity and corrine appear normal. Mild bilateral perihilar opacities. No evidence for consolidation. No significant pleural effusion noted. No pneumothorax detected. IMPRESSION: Mild bilateral perihilar atelectasis favored over evolving pneumonia.. DICTATED BY: BARB MCCULLOUGH MD DATE: 07/29/242003 ELECTRONICALLY SIGNED BY: BARB MCCULLOUGH MD DATE: 07/29/242006 DX & DISP Disposition: Discharge Departure Impression: Primary Impression: Pneumonitis Condition: Stable Scripts Azithromycin (Azithromycin) 250 Mg Tablet 1 TAB PO AD for 5 Days, #6 TAB 0 Refills 2 the first day followed by 1 for days 2-5 Prov: LIZZY CHAVES 07/29/24 Referrals: MARGO FRIEDMAN M.D. (PCP) Time of Disposition: 20:56 I have reviewed the case, and I agree with, Diagnosis and Plan I performed the substantive portion of the visit. I have reviewed and personally made and approve the management plan that is documented in the note by myself or the FRANCISCO. I acknowledge for responsibility for the patient's management plan. LIZZY CHAVES July 29, 2024 18:30
--- NOTE | 2024-07-29 18:33 | EKG ---
[facility] Test Date: 2024-07-29 Test Time: 18:30:14 Pat Name: WALT VEGA Department: 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
[2024-07-29 18:48] LABS: SARS-CoV-2, RNA, NAAT NEGATIVE SARS CoV-2 (NEGATIVE)
[2024-07-29 18:55] LABS: INFLUENZA TYPE A Negative For Type A (NEGATIVE); INFLUENZA TYPE B Negative For Type B (NEGATIVE)
[2024-07-29 19:04] LABS: CREATININE 1.1 mg/dL (0.5-1.3)
[2024-07-29 19:09] LABS: MAGNESIUM 1.9 mg/dL (1.80-2.40)
[2024-07-29] MEDS: IpraTROPium/alBUTERol SULFATE 3 ML SOLUTION IH ONE (19:12)
[2024-07-29 19:14] LABS: BASOPHILS # (AUTO) 0.06 K/uL (0.00-0.20); BASOPHILS % (AUTO) 0.6 % (0.0-5.0); EOSINOPHILS # (AUTO) 0.11 K/uL (0.00-0.70); EOSINOPHILS % (AUTO) 1.1 % (0.0-8.0); HEMATOCRIT 42.3 % (42-54); IMMATURE GRANULOCYTE ABSOLUTE 0.06 K/uL (0-1); LYMPHOCYTES # (AUTO) 1.2 K/uL (1.0-4.8); MEAN CORPUSCULAR HEMOGLOBIN 28.7 pg (27.0-33.0); MEAN CORPUSCULAR HGB CONC 32.9 g/dL (32.0-36.0); MEAN CORPUSCULAR VOLUME 87.4 fL (79-99); MONOCYTES # (AUTO) 0.7 K/uL (0.1-1.0); MONOCYTES % (AUTO) 7.2 % (3.0-13.0); NEUTROPHILS # (AUTO) 7.8 K/uL (1.8-7.7); NEUTROPHILS % (AUTO) 78.5 % (40.0-77.0); PLATELET COUNT (AUTO) 270 K/uL (130-400); RED BLOOD CELL COUNT(AUTO) 4.84 MIL/uL (4.50-6.20); RED CELL DISTRIBUTION WIDTH 13.2 % (11.0-15.5); WHITE BLOOD COUNT (AUTO) 9.9 K/uL (4.8-10.8)
[2024-07-29 19:17] VITALS: PULSE 69; RESP 17
--- NOTE | 2024-07-29 19:36 | NUR ---
PT CARE ASSUMED AT THIS TIME
[2024-07-29 19:39] LABS: B-TYPE NATRIURETIC PEPTIDE 15 pg/mL (0-100)
--- NOTE | 2024-07-29 20:07 | HMCIMG ---
PORTABLE CHEST RADIOGRAPH INDICATION: sob/cough/congestion COMPARISON: 06/07/2024 CT chest FINDINGS: flagstone layer leads overlie the field of view. Heart size is normal. The pulmonary vascularity and corrine appear normal. Mild bilateral perihilar opacities. No evidence for consolidation. No significant pleural effusion noted. No pneumothorax detected. IMPRESSION: Mild bilateral perihilar atelectasis favored over evolving pneumonia..
[2024-07-29] MEDS ORDERED: AZIT250T9 PO (20:56)
[2024-07-29] MEDS: cefTRIAXone 1G VIAL IVPB ONE (21:31)
[2024-07-29 23:00] VITALS: BP 148/65; PULSE 81; RESP 18; TEMP 98.2; O2SAT 98
== END 2024-07-29 23:15 | disposition home or self-care (01) ==
LOC: EDH 17:47
DX: J18.9 Pneumonia, unspecified organism (principal); E11.9 Type 2 diabetes mellitus without complications; E78.00 Pure hypercholesterolemia, unspecified; F03.90 Unspecified dementia, unspecified severity, without behavioral disturbance, psychotic disturbance, mood disturbance, and anxiety; I10 Essential (primary) hypertension; Z79.52 Long term (current) use of systemic steroids; Z79.899 Other long term (current) drug therapy; Z20.822 Contact with and (suspected) exposure to COVID-19
CPT/HCPCS: 99285; 96374; 71045; 87635; 96375; 82550; 83735; 84484; 80048; 83880; 85025; 87804 ×2; 83605; 36415; 93005; 94640; J2919; J7040; J0696

== ENCOUNTER → 2024-08-27 | Outpatient (CLI) | payer OTHER, MEDICARE ==
[~2024-08-27] MED LIST changes: +ALBU18HF7 IH; +AZIT500T4 PO; +CEFU500T67 PO; -DIVA125C11 PO; +DIVA125T32 PO; +FLUT16H NS; -PRED10TA3 PO; +PRED5TAB PO
--- NOTE | 2024-08-27 13:35 | HMCSR ---
APPROVED REPORT EXAM: Two-dimensional and M-mode echocardiogram with Doppler and color Doppler. INDICATION ICD: R06.89 Other abnormalities of breathing 2D Dimensions RVDd3.5 cmLVEF(%)59.5 (>50%)LVED Vol(simp.)70.0 mL IVSd1.1 (0.7-1.1cm)FS(%)31 %LVES Vol(simp.)25.0 mL LVDd3.4 (3.8-5.6cm)LA (2D)3.7 (1.6-4.0cm)LVEF(%, simp.)65 % PWd0.9 (0.7-1.1cm)Ao Root(2D)3.0 (2.0-3.7cm)LA ESV INDEX (BP)18.74 mL/m2 IVSs1.2 cmLVOT diam2.1 (1.8-2.4cm) LVDs2.4 (2.5-4.0cm)IVC diam1.8 cm PWs1.1 cm M-Mode Dimensions EPSS0.4 cm LA (MM)4.2 (1.6-4.0cm) Ao Root(MM)3.5 (2.0-3.7cm) Aortic Valve AoV Vmax1.6 m/Gillian Peak GR9.8 mmHgLVOT Vmax1.7 m/s AoV VTI0.3 mAo Mean GR5.7 mmHgLVOT VTI0.29 m MELLY (VMAX)3.85 cm2AVA (VTI) 3.8 cm2 Mitral Valve MV E Vmax49.9 cm/sDECEL Zkda528 ms MV A Syjl489.0 cm/sP 1/2 T47 ms E/A ratio0.4MVA (PHT)4.6 cm2 TDI E/E' Medial9.9E/E' Lateral5.8 Medial E' Peak V5.02 cm/sLateral E' Peak V8.61 cm/s Pulmonary Valve PV Vmax1.0 m/sPV VTI0.15 mPV Mean GR2.2 mmHg PV Peak GR3.9 mmHg Tricuspid Valve TR Vmax2.4 m/sRAP (EST) 3 duBtNLAN11.4 mmHg TR Peak GR23.4 mmHg Left Ventricle The left ventricle is normal size. There is normal left ventricular wall thickness. Left ventricular systolic function is hyperdynamic with LVEF >65% The left ventricular diastolic function is normal. Right Ventricle The right ventricle is normal size. The right ventricular systolic function is normal. Atria The left atrium size is normal. The right atrium size is normal. Aortic Valve The aortic valve is normal in structure. Trace aortic regurgitation is present. There is no aortic va lvular stenosis. Mitral Valve Mitral valve leaflets open well. There is mitral annular calcification. There is trace of mitral valv e regurgitation noted. There is no mitral valve stenosis. Tricuspid Valve The tricuspid valve is normal in structure. There is trace of tricuspid valve regurgitation noted. RV SP estimated 25 mmHg. Pulmonic Valve The pulmonary valve is normal in structure. There is no pulmonic valvular regurgitation. Great Vessels The aortic root is normal in size. The IVC is normal in size and collapses >50% with inspiration. Pericardium There is no pericardial effusion. Other Information Quality : Technically difficult study due to body habitus Rhythm : NSR Conclusion Left ventricular systolic function is hyperdynamic with LVEF >65% The left ventricular diastolic function is normal. Trace aortic regurgitation is present. Mild mmitral annular calcification.
== END | disposition home or self-care (01) ==
LOC: RAH 12:25
PROVIDERS: ATTEND Internal Medicine
DX: I34.0 Nonrheumatic mitral (valve) insufficiency (principal); R09.89 Other specified symptoms and signs involving the circulatory and respiratory systems
CPT/HCPCS: 93306

== ENCOUNTER 2024-10-03 10:26 | Inpatient (IN) | payer OTHER, MEDICARE ==
[~2024-10-03] VITALS: Ht 160 cm; Wt 63.6 kg
[~2024-10-03 10:26] MED LIST changes: -LATA2.5D14 OP; +LATA2.5D7 OP
[2024-10-03 10:55] LABS: APPEARANCE,URINE CLEAR (CLEAR); GLUCOSE, URINE (UA) NEGATIVE (NEGATIVE); LEUKOCYTE ESTERASE ,URINE NEGATIVE Leu/uL (NEGATIVE); NITRATE,URINE NEGATIVE (NEGATIVE); OCCULT BLOOD,URINE NEGATIVE (NEGATIVE)
[2024-10-03] MEDS: ZOSYN 3.375GM +NS 50ML IV ONE (11:01)
[2024-10-03] MEDS: 0.9%NACL 1000ML 1,000 ML IV ONE (11:02)
[2024-10-03 11:05] LABS: ADD UA MICROSCOPIC YES
[2024-10-03 11:06] LABS: ABG BASE EXCESS -3.3 mmol/L (-2.0-3.0); ABG HCO3 19.8 mmol/L (21.0-28.0); ABG OXYGEN SATURATION 92.7 % (94.0-98.0); ABG PCO2 31 mmHg (35-48); ABG PH 7.427 (7.350-7.450); DEVICE COMMENT RR SAUL; PO2, ARTERIAL BG 62.2 mmHg (83.0-108.0); TEMPERATURE, CELSIUS BG 37.0 CELSIUS (35.5-37.0); VENT MODE, BG 4LNC (ROOM AIR)
[2024-10-03 11:14] LABS: SQUAMOUS EPITHELIAL CELL,UR RARE /HPF (0-2)
--- NOTE | 2024-10-03 11:27 | HMCIMG ---
EXAM: CR Chest, 1 View. CLINICAL HISTORY: fever, sob COMPARISON: 08/15/2024. FINDINGS: LUNGS: The lungs show no infiltrate or other acute finding. PLEURAL SPACES: No pleural effusion or pneumothorax. MEDIASTINUM: Cardiac size and mediastinal contours within normal limits. BONES: No aggressive appearing osseous lesion seen. IMPRESSION: No acute cardiopulmonary pathology is evident. /[place]
[2024-10-03 12:18] LABS: IMMATURE GRANULOCYTE ABSOLUTE 0.02 K/uL (0-1); NUCLEATED RED BLOOD CELLS 0.0 % (0.0-0.19); PLATELET COUNT (AUTO) 314 K/uL (130-400); RED BLOOD CELL COUNT(AUTO) 5.23 MIL/uL (4.50-6.20); RED CELL DISTRIBUTION WIDTH 13.8 % (11.0-15.5); WHITE BLOOD COUNT (AUTO) 8.8 K/uL (4.8-10.8)
[2024-10-03 12:31] LABS: INR 1.08 (0.85-1.15)
[2024-10-03 13:08] LABS: CREATININE 1.8 mg/dL (0.5-1.3); GLOMERULAR FILTR. RATE CALC 40.0 mL/min (>90); GLUCOSE,RANDOM 122.0 mg/dL (70-105); SODIUM SERUM 147.0 mmol/L (136-145); UREA NITROGEN, BLOOD 39.0 mg/dL (7-18)
[2024-10-03 13:13] LABS: ASPARTATE AMINOTRANSFERASE 15.0 U/L (10-37); CREATINE KINASE, TOTAL 65.0 U/L (21-232); TOTAL PROTEIN, SERUM 7.1 g/dL (6.0-8.3)
--- NOTE | 2024-10-03 13:39 | ERN ---
ED Note History of Present Illness Stated Complaint: SOB Chief Complaint: Shortness of Breath Time Seen by MD: 10:29 Dictation: 68-year-old male presenting to the emergency department with generalized weakness shortness a breath and decreased p.o. intake family reports that they. He is dehydrated bed-bound and not doing Allergies: Coded Allergies: No Known Drug Allergies (Unverified Allergy, Unknown, 05/02/21) Home Meds Active Scripts Cefuroxime Axetil (Cefuroxime) 500 Mg Tablet, 1 TAB PO BID for 7 Days, #14 TAB 0 Refills Prov:CORINE RAY N CLIENT EXPERIENCE ADMINISTRATOR 08/15/24 Azithromycin (Azithromycin) 500 Mg Tablet, 1 TAB PO DAILY for 5 Days, #5 TAB 0 Refills Prov:CORINE RAY N CLIENT EXPERIENCE ADMINISTRATOR 08/15/24 Reported Medications Prednisone (Prednisone) 5 Mg Tablet, 1 TAB PO DAILY for 30 Days, #30 TAB 0 Refills 08/14/24 Fluticasone Propionate (Fluticasone Propionate) 50 Mcg/Actuation [place].susp, 2 SPRAY NS DAILY, #16 GM 0 Refills 08/14/24 Trazodone HCl (Trazodone HCl) 50 Mg Tablet, 2 TAB PO HS for 30 Days, #30 TAB 0 Refills 08/14/24 Divalproex Sodium (Divalproex Sodium) 125 Mg Tablet.dr, 1 TAB PO BID for 30 Days, #60 TAB 0 Refills 08/14/24 Montelukast Sodium (Montelukast Sodium) 10 Mg Tablet, 1 TAB PO HS for 30 Days, #30 TAB 0 Refills 08/14/24 Quetiapine Fumarate (Quetiapine Fumarate) 25 Mg Tablet, 1 TAB PO TID for 30 Days, #30 TAB 0 Refills 08/14/24 Albuterol Sulfate (Ventolin Hfa) 90 Mcg Hfa.aer.ad, 2 PUFF IH Q4HPRN PRN for wheezing for 30 Days, #18 GM 0 Refills 08/14/24 Polyethylene Glycol 3350 (Polyethylene Glycol 3350) 2,500 Gm Powder, 17 GM PO DAILY for constipation for 30 Days, #527 GM 0 Refills 06/08/24 Folic Acid (Folvite) 1 Mg Tab, 1 TAB PO DAILY for 30 Days, #30 TAB 0 Refills 06/08/24 Latanoprost (Latanoprost) 0.005 % Drops, 1 DROP OP HS, ML 0 Refills 06/08/24 Amlodipine Besylate (Amlodipine Besylate) 5 Mg Tablet, 2 TAB PO DAILY for 30 Days, #30 TAB 0 Refills 06/08/24 Memantine HCl (Memantine HCl) 10 Mg Tablet, 1 TAB PO BID for 30 Days, #60 TAB 0 Refills 06/08/24 Icosapent Ethyl (Icosapent Ethyl) 1 Gram Capsule, 2 CAP PO BID for 30 Days, #120 CAP 0 Refills 06/08/24 Atorvastatin Calcium (Atorvastatin Calcium) 40 Mg Tablet, 1 TAB PO HS for 30 Days, #30 TAB 0 Refills 06/08/24 Docusate Sodium (Docusate Sodium) 100 Mg Capsule, 1 CAP PO DAILY for constipation for 30 Days, #30 CAP 0 Refills 06/08/24 Past Medical History Past Medical History: COPD, CVA, Dementia, Diabetes-Type II, High Cholesterol, Hypertension Surgical History: None Surgical History Other: RT SX Family History: Negative Social History: Negative, Lives with family, Other Review of System Dictation Constitutional: Per HPI Eyes: Negative for injury, pain,redness, and discharge ENT: Negative for injury,pain or swelling Cardiovascular: Negative for chest pain, palpitations, and edema Respiratory: Per HPI Abdomen/GI: Negative for abdominal pain, nausea, vomiting, diarrhea, and constipation Back: Negative for injury and pain : Negative for injury, bleeding and discharge MS/Extremity: Negative for injury and deformity Skin: Negative for rash, and discoloration Initial Vital Sign VS Vital Signs Date Time Temp Pulse Resp B/P (MAP) Pulse Ox O2 Delivery O2 Flow Rate FiO2 10/03/24 10:27 98.1 96 18 145/69 95 Nasal Cannula 4.0 10/03/24 10:35 36 Physical Exam Dictation General: awake, appears weak and lethargic Head/Face: Normocephalic, atraumatic Eyes: PERRL, EOMI, vision at baseline ENT: oral cavity clear, TMs clear, no signs of infection Neck: Trachea midline, supple, no nuchal rigidity Cardiovascular: RRR, normal S1/S2, No MRGs, no JVD Respiratory: CTAB, no respiratory distress, No rales or wheezes Abdomen: Soft, non-tender, non-distended, normal bowel sounds, no guarding or rebound. Skin: Warm, dry, normal turgor, no rash MS/Extremity: Pulses equal, no cyanosis, neurovascular intact, FROM Neuro: COAx4, GCS 15, strength 5/5, CN 2-12 intact, normal cerebellar exam, normal gait, Psych: Normal behavior, mood, and affect normal Results (Laboratory/Radiology) Laboratory/Radiology Laboratory Tests Test 10/03/24 10:40 10/03/24 11:04 10/03/24 11:57 Urine Color YELLOW (YELLOW) Urine Appearance CLEAR (CLEAR) Urine pH 6.0 (5.0-8.0) Urine Specific [place] 1.020 (1.001-1.031) Urine Protein 100 mg/dL (NEGATIVE) H Urine Glucose (UA) NEGATIVE mg/dL (NEGATIVE) Urine Ketones 5 mg/dL (NEGATIVE) H Urine Occult Blood NEGATIVE (NEGATIVE) Urine Nitrate NEGATIVE (NEGATIVE) Urine Bilirubin NEGATIVE mg/dL (NEGATIVE) Urine Urobilinogen 2.0 mg/dL (0.2-1.0) H Urine Leukocyte Esterase NEGATIVE Rhea/uL Urine RBC 0-1 /HPF (0-1) Urine WBC 2-5 /HPF (0-1) H Urine Squamous Epithelial Cells RARE /HPF (0-2) Urine Bacteria RARE /HPF (None Seen) Blood Gas Specimen Type Arterial Arterial Blood pH 7.427 (7.350-7.450) Arterial Blood Partial Pressure CO2 31 mmHg (35-48) L Arterial Blood Partial Pressure O2 62.2 mmHg (83.0-108.0) L Arterial Blood HCO3 19.8 mmol/L (21.0-28.0) L Arterial Blood Oxygen Saturation 92.7 % (94.0-98.0) L Arterial Blood Base Excess -3.3 mmol/L (-2.0-3.0) L Blood Gas Temperature 37.0 CELSIUS (35.5-37.0) Blood Gas Flow-by 4.00 L/min (0.00-15.00) Blood Gas Vent Mode 4LNC (ROOM AIR) FiO2 36.0 % Blood Gas Specimen Comment RR DARIELA White Blood Count 8.8 K/uL (4.8-10.8) Red Blood Count 5.23 MIL/uL (4.50-6.20) Hemoglobin 14.6 g/dL (14.0-18.0) Hematocrit 45.8 % (42-54) Mean Corpuscular Volume 87.6 fL (79-99) Mean Corpuscular Hemoglobin 27.9 pg (27.0-33.0) Mean Corpuscular Hemoglobin Concent 31.9 g/dL (32.0-36.0) L Red Cell Distribution Width 13.8 % (11.0-15.5) Platelet Count 314 K/uL (130-400) Mean Platelet Volume 10.5 fL (7.5-10.5) Immature Granulocyte % (Auto) 0.2 % (0-1) Neutrophils (%) (Auto) 70.5 % (40.0-77.0) Lymphocytes (%) (Auto) 17.5 % (21.0-51.0) L Monocytes (%) (Auto) 7.4 % (3.0-13.0) Eosinophils (%) (Auto) 3.8 % (0.0-8.0) Basophils (%) (Auto) 0.6 % (0.0-5.0) Neutrophils # (Auto) 6.2 K/uL (1.8-7.7) Lymphocytes # (Auto) 1.5 K/uL (1.0-4.8) Monocytes # (Auto) 0.7 K/uL (0.1-1.0) Eosinophils # (Auto) 0.33 K/uL (0.00-0.70) Basophils # (Auto) 0.05 K/uL (0.00-0.20) Absolute Immature Granulocyte (auto 0.02 K/uL (0-1) Nucleated Red Blood Cells 0.0 % (0.0-0.19) Prothrombin Time 11.4 SEC (9.6-11.6) Prothromb Time International Ratio 1.08 (0.85-1.15) Activated Partial Thromboplast Time 28.8 SEC (26.3-35.5) Sodium Level 147 mmol/L (136-145) H Potassium Level 4.3 mmol/L (3.5-5.1) Chloride Level 113 mmol/L (101-111) H Carbon Dioxide Level 21 mmol/L (21-32) Blood Urea Nitrogen 39 mg/dL (7-18) H Creatinine 1.8 mg/dL (0.5-1.3) H Glomerular Filtration Rate Calc 40 mL/min (>90) Random Glucose 122 mg/dL (70-105) H Lactic Acid Level 1.7 mmol/L (0.8-2.5) Total Calcium 8.9 mg/dL (8.5-10.1) Total Bilirubin 1.0 mg/dL (0.2-1.0) Direct Bilirubin 0.4 mg/dL (0.0-0.3) H Aspartate Amino Transf (AST/SGOT) 15 U/L (10-37) Alanine Aminotransferase (ALT/SGPT) 20 U/L (12-78) Alkaline Phosphatase 105 U/L (50-136) Ammonia 15 umol/L (11-32) Total Creatine Kinase 65 U/L (21-232) # Troponin I High Sensitivity 8 ng/L (4-75) Total Protein 7.1 g/dL (6.0-8.3) Albumin 3.1 g/dL (3.5-5.0) L Labs Reviewed?: Yes EKG Comment: Heart rate 90, normal sinus rhythm normal intervals no STEMI ED Course ED Course Orders Procedure Category Date Status Time 12 Lead Ekg Tracing- EKG 10/03/24 Logged Technical 10:34 Ammonia LAB 10/03/24 Complete 10:34 Basic Metabolic Panel LAB 10/03/24 Complete 10:34 Blood Cult CECELIA 10/03/24 In Process 10:34 Cbc With Differential LAB 10/03/24 Complete 10:34 Creatine Kinase, Total LAB 10/03/24 Complete 10:34 Hepatic Function Panel LAB 10/03/24 Complete 10:34 Lactic Acid LAB 10/03/24 Complete 10:34 Pt And Ptt LAB 10/03/24 Complete 10:34 Troponin I High LAB 10/03/24 Complete Sensitivity 10:34 Urinalysis Profile LAB 10/03/24 Complete 10:34 Chest 1vw RAD 10/03/24 Resulted 10:34 Arterial Blood Gas RT 10/03/24 Transmitted 10:34 Zosyn 3.375gm+Ns 50ml PHA 10/03/24 Complete (Zosyn 3.375gm+Ns 11:00 0.9%Nacl 1000ml (Ns PHA 10/03/24 Complete 1000ml) 11:00 Arterial Blood Gas LAB 10/03/24 Complete 11:04 Current Medications Medications (Trade) Dose Ordered Sig/Amarilis Route PRN Reason Start Time Stop Time Status Last Admin Dose Admin Piperacillin Sod/ Tazobactam Sod (Zosyn 3.375gm+NS 50ml) 3.375 gm ONCE ONCE IV 10/03/24 11:00 10/03/24 11:01 DC 10/03/24 11:01 Sodium Chloride 1,000 ml @ 0 mls/hr ONCE ONCE IV 10/03/24 11:00 10/03/24 11:01 DC 10/03/24 11:02 Vital Signs Date Time Temp Pulse Resp B/P (MAP) Pulse Ox O2 Delivery O2 Flow Rate FiO2 10/03/24 11:08 90 18 129/78 96 Nasal Cannula* 4.0 N/A 10/03/24 10:35 98.1 89 20 145/69 95 Nasal Cannula* 4 36 10/03/24 10:27 98.1 96 18 145/69 95 Nasal Cannula 4.0 Medical Decision Making MDM MDM: Differential diagnosis: Rationale: Tests considered and ordered secondary to shared decision making include: labs, ECG and radiology Previous outside records reviewed: Old ER visits. Risk of complication and/or morbidity or mortality of patient management: None Medications-Per medication reconciliation Need for hospitalization: Patient does meet criteria for hospitalization. Need for emergency major/minor surgery: No There are no social concerns with this patient. Prescription drug management Prescriptions will include symptomatic care Patient's prior external medical records from other ER visits were reviewed by me as indicated. Prior testing and results from previous visits were reviewed. Prior tests were taken into account with medical decision making and resource utilization, independent historian/historians were used to obtain complete medical history. I independently interpreted the test that were performed, results were reviewed by me and considered findings on radiology if ordered. Medical management and examination interpretation discussions were had by me with other qualified healthcare professionals as indicated for the patient's care. 70-year-old male with generalized weakness shortness of breath failure to thrive decreased p.o. intake electrolytes showed dehydration with hyponatremia IV fluids given broad-spectrum antibiotics admitting for further care and evaluation. DX & DISP Disposition: Inpatient Departure Impression: Primary Impression: KRISTIE (acute kidney injury) Additional Impressions: Acute dehydration, Hypernatremia Condition: Stable Referrals: MARGO FRIEDMAN M.D. (PCP) MIREYA NEUMANN MD Oct 03, 2024 13:39
--- NOTE | 2024-10-03 14:26 | NUR ---
BASIM NEON SIGN MECHANIC ONE TO ONE SITTER
--- NOTE | 2024-10-03 14:38 | EKG ---
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
[2024-10-03 15:05] VITALS: BP 137/85; PULSE 83; RESP 16; TEMP 97.7
--- NOTE | 2024-10-03 16:44 | HP ---
[facility] HISTORY & PHYSICAL Date Patient Seen: Oct 03, 2024 Time of Visit: 16:29 Supervising Physician: Dr Bardales Primary Care Physician: [ ] Outpatient Specialists: [ ] Inpatient Consults: [ ] PROBLEM LIST: Acute hypoxic resp failure Dehydration, POA Normocytic anemia POA KRISTIE, POA Hyperglycemia in the presence of type 2 diabetes mellitus Chronic Conditions: COPD Dementia Essential hypertension Hyperlipidemia Debilitated Frequent falls Right eye blindness Abrasion to nose bridge SOB History of behavioral agitation and sundowning In per renal abdominal aortic aneurysm measuring 2.6 x 2.4 7 L and a prior visit 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 In the emergency department family states the patient had not been eating well for the past several days. No family present at time of my evaluation.. Patient poor historian and provides little details. Eating nursing reports patient on 2 L nasal cannula at home. Patient requiring 5 L nasal cannula with improved saturations. He was started on fluids and given 1 dose of Zosyn in the emergency department. Chest x-ray was clear. Thorough examination could not elicit any defects. Patient confused however reported to be near baseline, Chart review reveals similar presenting admissions. No abdominal tenderness. Patient has a KRISTIE. We will be admitted to medical with telemetry. RT evaluation. Pending discussion with family for current medications and code status PAST MEDICAL HX: see above PAST SURGICAL HX: noncontributory SOCIAL HISTORY: No tobacco, ETOH, or illicit drug use Coded Allergies: No Known Drug Allergies (Unverified Allergy, Unknown, 05/02/21) REVIEW OF SYSTEMS: 12 point ROS reviewed with patient. Pertinent positives mentioned above. Otherwise negative. PHYSICAL EXAM: GENERAL: alert, weak, awake oriented x 3 HEENT: EOMI, Sclera non icteric, moist mucosa NECK: Supple, no JVD, trachea midline LUNGS: Clear breath sounds bilaterally. No wheezes HEART: Regular rate and rhythm. Normal S1 and S2, without murmurs ABD: Abdomen soft, nontender. Bowel sounds present EXT: No clubbing cyanosis or edema NEURO: Alert and oriented to person, follows commands Vital Signs (last 8hr) Date Time Temp Pulse Resp B/P (MAP) Pulse Ox O2 Delivery O2 Flow Rate FiO2 10/03/24 15:05 97.7 83 16 137/85 93 Room Air 10/03/24 15:02 98.4 96 18 190/78 100 Nasal Cannula* 4 36 10/03/24 11:08 90 18 129/78 96 Nasal Cannula* 4.0 N/A 10/03/24 10:35 98.1 89 20 145/69 95 Nasal Cannula* 4 36 10/03/24 10:27 98.1 96 18 145/69 95 Nasal Cannula 4.0 LABS: Hematology Labs: Test 10/03/24 11:57 Range/Units White Blood Count 8.8 4.8-10.8 K/uL Red Blood Count 5.23 4.50-6.20 MIL/uL Hemoglobin 14.6 14.0-18.0 g/dL Hematocrit 45.8 42-54 % Mean Corpuscular Volume 87.6 79-99 fL Mean Corpuscular Hemoglobin 27.9 27.0-33.0 pg Mean Corpuscular Hemoglobin Concent 31.9 L 32.0-36.0 g/dL Red Cell Distribution Width 13.8 11.0-15.5 % Platelet Count 314 130-400 K/uL Mean Platelet Volume 10.5 7.5-10.5 fL Immature Granulocyte % (Auto) 0.2 0-1 % Neutrophils (%) (Auto) 70.5 40.0-77.0 % Lymphocytes (%) (Auto) 17.5 L 21.0-51.0 % Monocytes (%) (Auto) 7.4 3.0-13.0 % Eosinophils (%) (Auto) 3.8 0.0-8.0 % Basophils (%) (Auto) 0.6 0.0-5.0 % Neutrophils # (Auto) 6.2 1.8-7.7 K/uL Lymphocytes # (Auto) 1.5 1.0-4.8 K/uL Monocytes # (Auto) 0.7 0.1-1.0 K/uL Eosinophils # (Auto) 0.33 0.00-0.70 K/uL Basophils # (Auto) 0.05 0.00-0.20 K/uL Absolute Immature Granulocyte (auto 0.02 0-1 K/uL Nucleated Red Blood Cells 0.0 0.0-0.19 % Chemistry Labs: Test 10/03/24 11:57 Range/Units Sodium Level 147 H 136-145 mmol/L Potassium Level 4.3 3.5-5.1 mmol/L Chloride Level 113 H 101-111 mmol/L Carbon Dioxide Level 21 21-32 mmol/L Blood Urea Nitrogen 39 H 7-18 mg/dL Creatinine 1.8 H 0.5-1.3 mg/dL Glomerular Filtration Rate Calc 40 >90 mL/min Random Glucose 122 H 70-105 mg/dL Lactic Acid Level 1.7 0.8-2.5 mmol/L Total Calcium 8.9 8.5-10.1 mg/dL Total Bilirubin 1.0 0.2-1.0 mg/dL Direct Bilirubin 0.4 H 0.0-0.3 mg/dL Aspartate Amino Transf (AST/SGOT) 15 10-37 U/L Alanine Aminotransferase (ALT/SGPT) 20 12-78 U/L Alkaline Phosphatase 105 50-136 U/L Ammonia 15 11-32 umol/L Total Creatine Kinase 65 # 21-232 U/L Troponin I High Sensitivity 8 4-75 ng/L Total Protein 7.1 6.0-8.3 g/dL Albumin 3.1 L 3.5-5.0 g/dL Coagulation Labs: Test 10/03/24 11:57 Range/Units Prothrombin Time 11.4 9.6-11.6 SEC Prothromb Time International Ratio 1.08 0.85-1.15 Activated Partial Thromboplast Time 28.8 26.3-35.5 SEC DIAGNOSTICS / RADIOLOGY RESULTS: [ ] PLAN FLuids, dietary consult tele RT, nebs cultures pending home meds for rec Follow renal fxn NEURO: Minimize central acting medications as possible. Maintain fall precautions, adequate lighting during the day PULMONARY: Supplemental 02 as needed. Maintain aspiration precautions at all times CARDIOVASCULAR: Follow hemodynamics. Vital signs per facility protocol GI & NUTRITION: Continue with nutritional support. Continue stool softeners and laxatives as needed. KIDNEYS & ELECTROLYTES: Strict monitoring of intake, output and overall fluid balance. Avoid nephrotoxic medications to the extent possible. Medications to be dosed according to renal function. Monitor electrolytes and replace as needed ENDOCRINE: Maintain blood glucose between 100-180 at all times. Hypoglycemia protocol in place INFECTIOUS DISEASE: Trend temperature, WBC and procalcitonin level Follow cultures, deescalate antibiotics as soon as possible. Panculture if new onset fever ONCOLOGY/HEMATOLOGY/COAGULATION: Monitor for s/s of bleeding Monitor hemoglobin, coagulation studies as needed SKIN: Pressure ulcer prevention per facility protocol Specialty mattress ORTHO/REHAB: Continue PT/OT Prophylaxis: Continue GI and DVT prophylaxis Code Status: Full Resuscitation Disposition: TBD Other: Total patient care time exceeds 35 minutes excluding all procedures. CARMEN MARSH Oct 03, 2024 16:44
[2024-10-03] MEDS ORDERED: BENZOCAINE/MENTH/CETYLPYRD CL 1 EACH LOZENGE MM PRN (17:00)
[2024-10-03] MEDS ORDERED: LOPERAMIDE HCL 2 MG CAP PO PRN (17:00)
[2024-10-03] MEDS: 0.9%NACL 1000ML 1,000 ML IV SCH (17:22)
[2024-10-03 19:00] VITALS: BP 155/85; PULSE 75; RESP 19; TEMP 97.6
[2024-10-03 19:09] VITALS: PULSE 78; RESP 17
[2024-10-03 19:10] VITALS: PULSE 78; RESP 17; O2SAT 98
[2024-10-03 19:35] VITALS: O2SAT 98
[2024-10-03] MEDS: FAMOTIDINE 20MG VIAL IV SCH (21:32)
[2024-10-03 23:40] VITALS: PULSE 71; RESP 17
[2024-10-04] VITALS (13 sets, daily range): BP systolic 140–164; BP diastolic 65–74; PULSE 65–90; RESP 17–20; TEMP 97.7–98.1; O2SAT 97–100
[2024-10-04 06:37] LABS: CREATININE 1.5 mg/dL (0.5-1.3); GLOMERULAR FILTR. RATE CALC 50.0 mL/min (>90); GLUCOSE,RANDOM 128.0 mg/dL (70-105); PHOSPHORUS 3.3 mg/dL (2.5-4.9); SODIUM SERUM 148.0 mmol/L (136-145); UREA NITROGEN, BLOOD 34.0 mg/dL (7-18)
[2024-10-04 06:39] LABS: ASPARTATE AMINOTRANSFERASE 17.0 U/L (10-37); TOTAL PROTEIN, SERUM 6.7 g/dL (6.0-8.3)
--- NOTE | 2024-10-04 10:22 | NUR ---
DCP: HOME Pt currently lives with sps Melissa Jolly [phone] who was at bedside. Pt uses a cane and walker at home to ambulate. pt does not have home health or provider services. Pt does require assistance in completing ADLs and sps has been assisting him with those. She states that they previously had provider services however they were discontinued. She has been trying to get services reinstated. PCP is Dr. Hanna and uses [facility] for any RX needs. At [place] pt will want to go home and sps states she will try and get a friend to assist with transportation. Addendum: 10/04/24 at 1026 by CAMILO CARABALLO SS Amended: Links added.
[2024-10-04 10:53] LABS: IMMATURE GRANULOCYTE ABSOLUTE 0.02 K/uL (0-1); NUCLEATED RED BLOOD CELLS 0.0 % (0.0-0.19); PLATELET COUNT (AUTO) 296 K/uL (130-400); RED BLOOD CELL COUNT(AUTO) 4.98 MIL/uL (4.50-6.20); RED CELL DISTRIBUTION WIDTH 13.8 % (11.0-15.5); WHITE BLOOD COUNT (AUTO) 8.4 K/uL (4.8-10.8)
--- NOTE | 2024-10-04 11:01 | PN ---
[facility] PROGRESS NOTE Date Patient Seen: Oct 04, 2024 Time of Visit: 11:00 Supervising Physician: Dr Edmonds Primary Care Physician: [ ] Outpatient Specialists: [ ] Inpatient Consults: [ ] PROBLEM LIST: Acute hypoxic resp failure Dehydration, POA Normocytic anemia POA KRISTIE, POA Hyperglycemia in the presence of type 2 diabetes mellitus Chronic Conditions: COPD Dementia Essential hypertension Hyperlipidemia Debilitated Frequent falls Right eye blindness Abrasion to nose bridge SOB History of behavioral agitation and sundowning In per renal abdominal aortic aneurysm measuring 2.6 x 2.4 7 L and a prior visit 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 at bedside. Patient is more alert, reporting no chest pain or shortness of breath. Labs have improved. Good saturations nasal cannula 2 L Patient's sodium levels elevated, has been changed to D5W at the same rate Plan: Patient is from home, where he has hospice Case management working on getting him back home Follow labs and sodium levels Diet Likely DC tomorrow home to hospice REVIEW OF SYSTEMS: 12 point ROS reviewed with patient. Pertinent positives mentioned above. Otherwise negative. PHYSICAL EXAM: GENERAL: alert, weak, awake oriented x 3 HEENT: EOMI, Sclera non icteric, moist mucosa NECK: Supple, no JVD, trachea midline LUNGS: Clear breath sounds bilaterally. No wheezes HEART: Regular rate and rhythm. Normal S1 and S2, without murmurs ABD: Abdomen soft, nontender. Bowel sounds present EXT: No clubbing cyanosis or edema NEURO: Alert and oriented to person, follows commands Vital Signs (last 8hr) Date Time Temp Pulse Resp B/P (MAP) Pulse Ox O2 Delivery O2 Flow Rate FiO2 10/04/24 07:42 98.1 90 17 157/74 97 Nasal Cannula 2.0 10/04/24 07:00 71 18 10/04/24 06:59 71 17 N/Cannula Low lpm 3.0 32 10/04/24 04:00 97.7 70 18 147/67 97 Nasal Cannula 3.0 LABS: Hematology Labs: Test 10/04/24 06:05 Range/Units White Blood Count 8.4 4.8-10.8 K/uL Red Blood Count 4.98 4.50-6.20 MIL/uL Hemoglobin 14.0 14.0-18.0 g/dL Hematocrit 44.3 42-54 % Mean Corpuscular Volume 89.0 79-99 fL Mean Corpuscular Hemoglobin 28.1 27.0-33.0 pg Mean Corpuscular Hemoglobin Concent 31.6 L 32.0-36.0 g/dL Red Cell Distribution Width 13.8 11.0-15.5 % Platelet Count 296 130-400 K/uL Mean Platelet Volume 10.9 H 7.5-10.5 fL Immature Granulocyte % (Auto) 0.2 0-1 % Neutrophils (%) (Auto) 77.8 H 40.0-77.0 % Lymphocytes (%) (Auto) 12.7 L 21.0-51.0 % Monocytes (%) (Auto) 6.3 3.0-13.0 % Eosinophils (%) (Auto) 2.4 0.0-8.0 % Basophils (%) (Auto) 0.6 0.0-5.0 % Neutrophils # (Auto) 6.6 1.8-7.7 K/uL Lymphocytes # (Auto) 1.1 1.0-4.8 K/uL Monocytes # (Auto) 0.5 0.1-1.0 K/uL Eosinophils # (Auto) 0.20 0.00-0.70 K/uL Basophils # (Auto) 0.05 0.00-0.20 K/uL Absolute Immature Granulocyte (auto 0.02 0-1 K/uL Nucleated Red Blood Cells 0.0 0.0-0.19 % Chemistry Labs: Test 10/04/24 06:05 10/04/24 05:56 10/03/24 11:57 Range/Units Sodium Level 148 H 136-145 mmol/L Potassium Level 4.0 3.5-5.1 mmol/L Chloride Level 116 H 101-111 mmol/L Carbon Dioxide Level 20 L 21-32 mmol/L Blood Urea Nitrogen 34 H 7-18 mg/dL Creatinine 1.5 H 0.5-1.3 mg/dL Glomerular Filtration Rate Calc 50 >90 mL/min Random Glucose 128 H 70-105 mg/dL Total Calcium 9.2 8.5-10.1 mg/dL Phosphorus Level 3.3 2.5-4.9 mg/dL Magnesium Level 2.40 1.80-2.40 mg/dL Total Bilirubin 0.7 # 0.2-1.0 mg/dL Aspartate Amino Transf (AST/SGOT) 17 10-37 U/L Alanine Aminotransferase (ALT/SGPT) 15 # 12-78 U/L Alkaline Phosphatase 102 50-136 U/L Total Protein 6.7 6.0-8.3 g/dL Albumin 3.0 L 3.5-5.0 g/dL Whole Blood Glucose 120 H 70-110 MG/DL Hemoglobin A1c 8.0 H 4.0-6.0 % Estimated Average Glucose (eAG) 183 H 70-126 mg/dL Lactic Acid Level 1.7 0.8-2.5 mmol/L Direct Bilirubin 0.4 H 0.0-0.3 mg/dL Ammonia 15 11-32 umol/L Total Creatine Kinase 65 # 21-232 U/L Troponin I High Sensitivity 8 4-75 ng/L Procalcitonin 0.17 0.05-0.5 ng/mL Thyroid Stimulating Hormone (TSH) 1.75 # 0.36-3.74 uIU/mL Coagulation Labs: Test 10/03/24 11:57 Range/Units Prothrombin Time 11.4 9.6-11.6 SEC Prothromb Time International Ratio 1.08 0.85-1.15 Activated Partial Thromboplast Time 28.8 26.3-35.5 SEC DIAGNOSTICS / RADIOLOGY RESULTS: [ ] PLAN FLuids, dietary consult tele RT, nebs cultures pending home meds for rec Follow renal fxn NEURO: Minimize central acting medications as possible. Maintain fall precautions, adequate lighting during the day PULMONARY: Supplemental 02 as needed. Maintain aspiration precautions at all times CARDIOVASCULAR: Follow hemodynamics. Vital signs per facility protocol GI & NUTRITION: Continue with nutritional support. Continue stool softeners and laxatives as needed. KIDNEYS & ELECTROLYTES: Strict monitoring of intake, output and overall fluid balance. Avoid nephrotoxic medications to the extent possible. Medications to be dosed according to renal function. Monitor electrolytes and replace as needed ENDOCRINE: Maintain blood glucose between 100-180 at all times. Hypoglycemia protocol in place INFECTIOUS DISEASE: Trend temperature, WBC and procalcitonin level Follow cultures, deescalate antibiotics as soon as possible. Panculture if new onset fever ONCOLOGY/HEMATOLOGY/COAGULATION: Monitor for s/s of bleeding Monitor hemoglobin, coagulation studies as needed SKIN: Pressure ulcer prevention per facility protocol Specialty mattress ORTHO/REHAB: Continue PT/OT Prophylaxis: Continue GI and DVT prophylaxis Code Status: Full Resuscitation Disposition: TBD Other: Total patient care time exceeds 35 minutes excluding all procedures. CARMEN MARSH Oct 04, 2024 11:01
[2024-10-04] MEDS ORDERED: PHARMACY COMMUNICATION MISC SCH ×2 (11:30)
[2024-10-04] MEDS: DEXTROSE 5 % AND 0.9 % NACL 1,000 ML IV SCH (12:29)
--- NOTE | 2024-10-04 14:00 | NUR ---
SPEECH NOTE: INCOME TAX ADVISOR coordinated with nurse Velez. As per nurse, patient going home with hospice and on comfort measures. Speech therapy not warranted at this time. All questions answered. Addendum: 10/04/[address] [facility]ISA Amended: Links added.
--- NOTE | 2024-10-04 14:01 | NUR ---
DCP UPDATE: HOME WITH [facility] Pt is currently on [facility] hospice and as per sps he will be returning on hospice at [place]. As of now there is a tentative dc for 10/05/24. Pt does have a hospital bed, wheelchair, walker, and o2 at home. Clinicals were faxed to [facility] [phone].
[2024-10-04] MEDS: ZOSYN 3.375GM +NS 50ML IV SCH (14:19)
--- NOTE | 2024-10-04 15:58 | NUR ---
Nutritional Note: Chart, meds, and labs Reviewed. Recommend: -advance to liberalized diet -encourage small frequent meals -Nepro w/ trays -If No BM >3days consider bowel stimulant. -emphasize hydration, comfort and quality of life over aggressive refeeding. - Notify RD if additional nutrition concerns arise. SEE RD Nutritional Assessment for additional assessment information. Addendum: 10/04/24 at [address] Amended: Links added.
--- NOTE | 2024-10-04 16:30 | NUR ---
DIET PER SPEECH, PATIENT GOING HOME WITH HOSPICE SERVICES, NO SPEECH WARRANTED AT THIS TIME. NOTIFIED PROVIDER. TORB, OK TO START DIET WITH PLEASURE FEEDINGS. PATIENT'S AT BEDSIDE AND EDUCATED ON RECOMMENDATIONS. VOICED UNDERSTANDING. PER , PATIENT EATS REG SMALLER CUT PORTIONS OF SOLID FOOD AND THIN LIQUIDS SLOWLY. ORDERS PLACED AND CARRIED OUT. WILL CONTINUE TO MONITOR.
--- NOTE | 2024-10-04 17:20 | NUR ---
NURSE NOTE PATIENT ANXIOUS, WANTING TO PULL OUT IV AND ATTEMPTING TO GET OUT OF BED. PER SPOUSE, PATIENT TAKES ALPRAZOLAM 0.5MG TID PRN FOR ANXIETY. HOME MEDICATIONS NOT RECONCILED. PAGED BENCHMARK GROUP FOR CONTINUATION. PENDING CALLBACK.
[2024-10-04] MEDS ORDERED: ALPR-410 PO (17:29)
--- NOTE | 2024-10-04 17:32 | NUR ---
CALLBACK JOESPH BACON NP CALLED BACK REGARDING HOME MEDICATIONS. TORB OK TO RESTART ALPRAZOLAM AND BP MEDICATIONS. ORDERS PLACED AND CARRIED OUT. WILL CONTINUE TO MONITOR.
[2024-10-04] MEDS ORDERED: TAMS-55 PO (17:39)
[2024-10-04] MEDS ORDERED: FURO40TA5 PO (17:39)
[2024-10-04] MEDS ORDERED: METF-444 PO (17:39)
[2024-10-04] MEDS ORDERED: MONT-39 PO (17:40)
[2024-10-04] MEDS: amLODIPine 5 MG TAB PO SCH (19:50)
[2024-10-04] MEDS: Solu-medROL 40MG VIAL ONE (19:53)
[2024-10-04] MEDS: Solu-medROL 40MG VIAL IVP SCH (19:53)
[2024-10-05] VITALS (9 sets, daily range): BP systolic 131–152; BP diastolic 60–79; PULSE 54–70; RESP 18–19; TEMP 96.9–97.8; O2SAT 96–100
[2024-10-05 04:19] LABS: IMMATURE GRANULOCYTE ABSOLUTE 0.02 K/uL (0-1); NUCLEATED RED BLOOD CELLS 0.0 % (0.0-0.19); PLATELET COUNT (AUTO) 293 K/uL (130-400); RED BLOOD CELL COUNT(AUTO) 4.62 MIL/uL (4.50-6.20); RED CELL DISTRIBUTION WIDTH 13.5 % (11.0-15.5); WHITE BLOOD COUNT (AUTO) 5.6 K/uL (4.8-10.8)
[2024-10-05 04:40] LABS: CREATININE 1.3 mg/dL (0.5-1.3); GLOMERULAR FILTR. RATE CALC 59.0 mL/min (>90); GLUCOSE,RANDOM 248.0 mg/dL (70-105); SODIUM SERUM 150.0 mmol/L (136-145); UREA NITROGEN, BLOOD 25.0 mg/dL (7-18)
[2024-10-05 04:41] LABS: ASPARTATE AMINOTRANSFERASE 18.0 U/L (10-37); PHOSPHORUS 3.0 mg/dL (2.5-4.9); TOTAL PROTEIN, SERUM 5.8 g/dL (6.0-8.3)
--- NOTE | 2024-10-05 04:42 | HMCIMG ---
EXAM: CR Chest, 1 view CLINICAL HISTORY: Pneumonia. COMPARISON: Chest radiograph dated 10/03/2024. FINDINGS: Linear opacities in the right mid and left lower zones, likely subsegmental atelectasis. No pleural effusion or pneumothorax. The cardiomediastinal silhouette is within normal limits. No acute osseous abnormality. IMPRESSION: No acute cardiopulmonary process is evident. Linear opacities in the right mid and left lower zones, likely subsegmental atelectasis. No gross interval changes. /[place]
[2024-10-05] MEDS: ENOXAPARIN SODIUM 30 MG/0.3 ML SQ SCH (08:24)
[2024-10-05] MEDS ORDERED: AMOX-426 PO (12:51)
--- NOTE | 2024-10-05 12:57 | DS ---
[facility] DISCHARGE SUMMARY Date Patient Seen: Oct 05, 2024 Time of Visit: 12:52 Supervising Physician: [Dr Edmonds Primary Care Physician: [ ] Outpatient Specialists: [ ] Inpatient Consults: [ ] PROBLEM LIST: Acute hypoxic resp failure Dehydration, POA Normocytic anemia POA KRISTIE, POA Hyperglycemia in the presence of type 2 diabetes mellitus Chronic Conditions: COPD Dementia Essential hypertension Hyperlipidemia Debilitated Frequent falls Right eye blindness Abrasion to nose bridge SOB History of behavioral agitation and sundowning In per renal abdominal aortic aneurysm measuring 2.6 x 2.4 7 L and a prior visit 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 In the emergency department family states the patient had not been eating well for the past several days. No family present at time of my evaluation.. Patient poor historian and provides little details. Eating nursing reports patient on 2 L nasal cannula at home. Patient requiring 5 L nasal cannula with improved saturations. He was started on fluids and given 1 d ose of Zosyn in the emergency department. Chest x-ray was clear. Thorough examination could not elicit any defects. Patient confused however reported to be near baseline, Chart review reveals similar presenting admissions. No abdominal tenderness. Patient has a KRISTIE. We will be admitted to medical with telemetry. RT evaluation. Pending discussion with family for current medications and code status 10/04 - Patient seen and examined, he is sitting comfortably in bed. at bedside. Patient is more alert, reporting no chest pain or shortness of breath. Labs have improved. Good saturations nasal cannula 2 L Patient's sodium levels elevated, has been changed to D5W at the same rate 10/05 - today patient is seen sitting up in bed with no signs of acute distress. Patient has remained on room air no signs of respiratory distress. Patient denies chest discomfort chest pain at this time. Informed by case management the family has decided to take the patient back home with hospice services. Case Management Reports that all arrangements with hospice have been completed. Vital signs are stable. Labs are within normal limits. Patient continues oral antibiotics as prescribed. Education regarding current diagnosis been provided to the patient. All questions have been answered. Patient to be Discharged home with hospice. 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 PCP notified of patients admission, hospital course and discharge. New Medications: Amoxicillin/Potassium Clav (Augmentin 500-125 Tablet) 500 Mg-125 Mg Tablet 1 TAB PO BID for 7 Days, #14 TAB 0 Refills Continued Medications: Albuterol Sulfate (Ventolin Hfa) 90 Mcg Hfa.aer.ad 2 PUFF IH Q4HPRN PRN for wheezing for 30 Days, #18 GM 0 Refills Alprazolam (Alprazolam) 0.5 Mg Tab.rapdis 1 TAB PO Q6HPRN for ANXIETY for 30 Days, #60 TAB 0 Refills Amlodipine Besylate (Amlodipine Besylate) 5 Mg Tablet 2 TAB PO HS for 30 Days, #30 TAB 0 Refills Atorvastatin Calcium (Atorvastatin Calcium) 40 Mg Tablet 1 TAB PO HS for 30 Days, #30 TAB 0 Refills Divalproex Sodium (Divalproex Sodium) 125 Mg Tablet.dr 1 TAB PO BID for 30 Days, #60 TAB 0 Refills Docusate Sodium (Docusate Sodium) 100 Mg Capsule 1 CAP PO DAILY for constipation for 30 Days, #30 CAP 0 Refills Folic Acid (Folvite) 1 Mg Tab 1 TAB PO DAILY for 30 Days, #30 TAB 0 Refills Furosemide (Furosemide) 40 Mg Tablet 1 TAB PO DAILY for 30 Days, #30 TAB 0 Refills Latanoprost (Latanoprost) 0.005 % Drops 1 DROP OP HS, ML 0 Refills Memantine HCl (Memantine HCl) 10 Mg Tablet 1 TAB PO BID for 30 Days, #60 TAB 0 Refills Metformin HCl (Metformin HCl) 500 Mg Tablet 1 TAB PO DAILY for 30 Days, #60 TAB 0 Refills Montelukast Sodium (Montelukast Sodium) 10 Mg Tablet 1 TAB PO HS for 30 Days, #30 TAB 0 Refills Prednisone (Prednisone) 5 Mg Tablet 1 TAB PO DAILY for 30 Days, #30 TAB 0 Refills Quetiapine Fumarate (Quetiapine Fumarate) 25 Mg Tablet 1 TAB PO TID for 30 Days, #30 TAB 0 Refills Tamsulosin HCl (Flomax) 0.4 Mg Cap.er.24h 1 CAP PO DAILY for 30 Days, #30 CAP 0 Refills Trazodone HCl (Trazodone HCl) 50 Mg Tablet 2 TAB PO HS for 30 Days, #30 TAB 0 Refills PHYSICAL EXAM: GENERAL: alert, weak, awake oriented x 3 HEENT: EOMI, Sclera non icteric, moist mucosa NECK: Supple, no JVD, trachea midline LUNGS: Clear breath sounds bilaterally. No wheezes HEART: Regular rate and rhythm. Normal S1 and S2, without murmurs ABD: Abdomen soft, nontender. Bowel sounds present EXT: No clubbing cyanosis or edema NEURO: Alert and oriented to person, follows commands FOLLOW-UP: Follow-up with PCP in 2-3 days Follow up with hospice services once patient arrives home RECOMMENDATIONS: See Discharge Instructions This case was seen and discussed with my supervising physician. More than 30 minutes spent on discharge process, including evaluation of the patient, discussion with nursing staff, medication reconciliation and follow-up appointments ATTESTATION BY PHYSICIAN I have seen and examined the patient. I reviewed the documentation, medical decision making, and treatment plan as noted by the mid-level provider above. I agree with the findings and plan of care. Zoë Edmonds MD, ECTOR N NP Oct 05, 2024 12:57
--- NOTE | 2024-10-05 17:02 | NUR ---
DISCHARGE PIV DC'D QUESTIONS ANSWERED PRIOR TO DISCHARGE [facility] GIVEN REPORT PRIOR TO DISCHARGE EMS GIVEN REPORT AND FAXED OVER PAPERWORK TO [phone]
== END 2024-10-05 17:31 | disposition hospice, home (50) | DRG 189 ==
LOC: EDH 10:26 → EDHIP 13:37 → 3DH 15:19
PROVIDERS: ADMIT Internal Medicine Critical Care Medicine; ATTEND Internal Medicine Critical Care Medicine
DX: J96.01 Acute respiratory failure with hypoxia (principal); N17.9 Acute kidney failure, unspecified; E86.0 Dehydration; E11.65 Type 2 diabetes mellitus with hyperglycemia; D64.9 Anemia, unspecified; F03.90 Unspecified dementia, unspecified severity, without behavioral disturbance, psychotic disturbance, mood disturbance, and anxiety; H54.61 Unqualified visual loss, right eye, normal vision left eye; I10 Essential (primary) hypertension; I71.40 Abdominal aortic aneurysm, without rupture, unspecified; J44.9 Chronic obstructive pulmonary disease, unspecified; R29.6 Repeated falls; Z86.73 Personal history of transient ischemic attack (TIA), and cerebral infarction without residual deficits; E78.5 Hyperlipidemia, unspecified; E78.00 Pure hypercholesterolemia, unspecified; Z79.899 Other long term (current) drug therapy
CPT/HCPCS: 36415; 36600; 71045; 80048; 80053; 80076; 81001; 82140; 82550; 82803; 82948; 83036; 83605; 83735; 84100; 84145; 84443; 84484; 85025; 85610; 85730; 87040; 93005; 94640; 94664; 96374; 99285; G0378; J1650; J2543; J2919; J3490; J7030